=== PATIENT | male | born 1935 | race Caucasian/White ===

== ENCOUNTER → 2016-12-22 | Outpatient (CLI) | payer MEDICARE, BC, OTHER ==
[~2016-12-22] MED LIST: ACET500C PO; ACTO150T PO; ADV250INH INH; ADVA115A INH; AMLO2.5T PO; AMLO5TAB2 PO; ASPI1TAB PO; ASPI81TA85 PO; ASTE0.15; BORIC ACID AU; CALC1TAB30 PO; CALTTAB10 PO; CARB1TAB6 PO; CARB25TA PO; CEPH500C PO; CETI10TA PO; COMBAER6 IN; COMBAER6 INH; COMBIN INH; FERR325T PO; FERR325T3 PO; FINA5TAB2 PO; FISH120012 PO; FLOM5CAP PO; FOLI1TAB2 PO; FOLI1TAB86 PO; FURO20TA2 PO; GLUC750T22 PO; GLUCTAB6 PO; KEPP500T6 PO; LEVA500T PO; LIPI20TA PO; LORA10TA2 PO; MAGN400C2 PO; MAGN400T2 PO; META48.54 PO; METAPKT PO; METO-207 PO; METO50TA2 PO; METO50TA4 PO; MOME50SP; NORT25CA2 PO; NYST50SS SS; OMEP20CA3 PO; OXYB10TA PO; PROC10TA PO; RANI150T PO; SINE25TA PO; SYSTSOL8 OU; TAMS0.4C2 PO; TYLE325T5 PO; VITA100037 PO; VITA100066 PO; VITMTA PO; [UNRECOGNIZED DRUG - CODE] AU; [UNRECOGNIZED DRUG - OTHER] PO; benifiber PO; metamucil PO
--- NOTE | 2016-12-22 09:27 | REP ---
Chest x-ray, PA and lateral, 12/22/2016: Comparison 11/03/2016, 10/11/2016, 10/05/2016. Clinical history: Status post left lower lobectomy for lung carcinoma. Volume loss in the left hemithorax again seen. There is some lateral pleural thickening. Retrocardiac left lower lung zone atelectasis or fibrosis. Fibrotic changes in the suprahilar left lung. Small nodule could easily be obscured in these areas. The right lung is better inflated. There is underlying fibrosis and COPD. Some lateral pleural thickening right base noted. No pneumothorax. Heart mildly enlarged. There is no pulmonary edema. Some emphysematous changes are seen in the mid and upper lung zones. The aorta is mildly tortuous. Airway intact. The bony thorax shows degenerative changes without acute compression deformity. Impression: 1. Status post left lobectomy with volume loss left hemithorax and basilar fibrotic or atelectatic changes in retrocardiac region and suprahilar atelectasis or fibrosis seen. Small nodules could not be excluded in these regions. 2. Underlying COPD and bullous emphysematous changes with heavier fibrosis in the right base. No right effusion. 3. Mild cardiomegaly but no pulmonary edema, aortic aneurysm or other acute finding. Signed by Sotero Mendes MD 12/22/2016 05:03 P
== END ==
LOC: M SMT 08:45
PROVIDERS: ATTEND Ophthalmology
DX: C34.32 Malignant neoplasm of lower lobe, left bronchus or lung (principal); J44.9 Chronic obstructive pulmonary disease, unspecified; J84.10 Pulmonary fibrosis, unspecified; I51.7 Cardiomegaly

== ENCOUNTER → 2016-12-29 | Outpatient (CLI) | payer MEDICARE, BC ==
--- NOTE | 2016-12-29 23:45 | ECWPNPC ---
PATIENT NAME: JOANN TALELY : 1935 GENDER: MALE VISIT DATE: 12/29/2016 DISCHARGE DATE: 12/29/16 1716 VISIT LOCKED DATE TIME: PHYSICIAN: VAUGHN GREEN RESOURCE: VAUGHN GREEN REASON FOR APPOINTMENT 1. CHRONIC PAIN, LOW BACK HISTORY OF PRESENT ILLNESS NEW PATIENT CONSULT: WHEN DID YOUR PAIN FIRST START? . BRIEFLY DESCRIBE HOW YOUR PAIN STARTED? . HOW DOES YOUR PAIN CHANGE WITH TIME? . DOES YOUR PAIN AWAKEN YOU FROM SLEEP? . HOW MANY HOURS OF SLEEP DO YOU NORMALLY GET? . ANY DIAGNOSTIC TESTING? . FACILITY WHERE TESTS WERE DONE? ____. PAIN TREATMENT TREATMENT YES CANCER HAVE YOU EVER HAD ANY TYPE OF CANCER?YES CANCER TREATMENT?SURGERY, CHEMOTHERAPY NO. PAIN SCREENING: PATIENT HAS A COMPLAINT OF ACUTE OR CHRONIC PAIN YES FALL RISK SCREENING: SCREENING :NO FALLS IN THE PAST YEAR FIELDS INVENTORY: QUESTIONNAIRE ASSESSEDTBD SCORE VALUE CALCULATED TBD TODAY'S VISIT: NOTES: 81 YEAR OLD PATIENT PREVIOUSLY SEEN AT CLINIC FOR LOW BACK AND LEG PAIN, WITH LAST VISIT01/12/15, AND LAST INJECTION WAS BILATERAL LUMBAR FACET BLOCK, THERAPEUTIC ON 12/08/14. BACK PAIN HAS BEEN UNDER VERY GOOD CONTROL UNTIL A RECENT HOSPITALIZATION ON 11/02- FOR POST CHEMOTHERAPY WEAKNESS, FEVER, LEUKOCYTOSIS AND THROMBOCYTOPENIA, FOLLOW WITH DR JAMES FOR ONCOLOGY. DURING HOSPITALIZATION FOR LOW WHITE CELLS AND PLATELETS BEGAN HAVING PAIN IN LOW LACK WITH NUMBNESS ALONG LEFT THIGH TO LEVEL OF THE KNEE. HAS DISCOMFORT IN LOW BACK RIGHT SIDE WHICH IS PRESENT WHEN STANDING OR LYING DOWN. NO RECENT FALLS. BOWELS HAVE BEEN INTERMITTANTLY CONSTIPATED. NO HEMATACHEZIA. HAS NOCTURIA AND URINARY FREQUENCY SECONDARY TO BPH. NO SIGIFICANT DIFFICULTY WITH SOB DESPITE LOBECTOMY. STATES HAS BEEN DISCHARGED BY DR ZUNIGA HE HAS DONE SO WELL.. INFREQUENT COUGH WITH NO PRODUCTION. IS TAKING NO PAIN MEDS.. . CURRENT MEDICATIONS TAKING NORTRIPTYLINE HCL 25 MG CAPSULE 1 CAPSULE ORALLY ONCE A DAY TAKING LASIX 20 MG TABLET 1 TABLET ORALLY ONCE A DAY TAKING CARBIDOPA-LEVODOPA 25-100 MG TABLET 1 TABLET ORALLY THREE TIMES A DAY TAKING OMEPRAZOLE 20 MG CAPSULE DELAYED RELEASE 1 CAPSULE ORALLY ONCE A DAY TAKING AMLODIPINE BESYLATE 10 MG TABLET 1 TABLET ORALLY ONCE A DAY TAKING ORJCIHEQDEA-IBHTRDXMB-FFPJT-MN 750-600 CAPSULE DIRECTED ORALLY TAKING ASPIR-81 81 MG TABLET DELAYED RELEASE 1 TABLET ORALLY ONCE A DAY TAKING TYLENOL 325 MG TABLET 1 TABLET NEEDED ORALLY EVERY 6 HRS TAKING MAGNESIUM 400 MG CAPSULE 1 CAPSULE WITH A MEAL ORALLY ONCE A DAY TAKING FERROUS SULFATE 325 (65 FE) MG TABLET 1 TABLET ORALLY ONCE A DAY TAKING METOPROLOL SUCCINATE ER 50 MG TABLET EXTENDED RELEASE 24 HOUR 1 TABLET ORALLY ONCE A DAY TAKING FOLIC ACID 1 MG TABLET 1 TABLET ORALLY ONCE A DAY TAKING COMBIVENT 18-103 MCG/ACT AEROSOL 2 PUFFS INHALATION FOUR TIMES A DAY TAKING CALTRATE 600+D 600-400 MG-UNIT TABLET CHEWABLE 1 TABLET WITH MEALS ORALLY TWICE A DAY TAKING KEPPRA 500 MG TABLET 1 TABLET ORALLY EVERY 12 HRS TAKING SYSTANE 0.4-0.3 % SOLUTION 1 DROP INTO AFFECTED EYE NEEDED OPHTHALMIC 24 TIME(S) A DAY TAKING FISH OIL 1200 MG CAPSULE 1 CAPSULE ORALLY ONCE A DAY TAKING VITAMIN D 1000 UNIT CAPSULE 1 CAPSULE ORALLY ONCE A DAY TAKING ACTONEL 150 MG TABLET 1 TABLET ORALLY TAKING BORIC ACID IN ISOPROPYL SOLUTION DIRECTED OTIC TAKING ZYRTEC ALLERGY 10 MG TABLET 1 TABLET NEEDED ORALLY ONCE A DAY TAKING ASTEPRO 0.15 DIRECTED TAKING NASONEX 50 MCG/ACT SUSPENSION 2 SPRAYS IN EACH NOSTRIL NASALLY TWICE A DAY TAKING CENTRUM .04 TABLET 2 TABLETS DIRECTED ORALLY 1 TAKING TAMSULOSIN HCL 0.4 MG CAPSULE 2 CAPSULE 30 MINUTES AFTER THE SAME MEAL EACH DAY ORALLY ONCE A DAY TAKING OXYBUTYNIN CHLORIDE ER 5 TABLET EXTENDED RELEASE 24 HOUR DIRECTED ORALLY ONCE A DAY TAKING OXYBUTYNIN CHLORIDE ER 5 MG TABLET EXTENDED RELEASE 24 HOUR TAKE ONE TABLET BY MOUTH EVERY DAY DIRECTED TAKING FINASTERIDE 5 MG TABLET TAKE ONE TABLET BY MOUTH EVERY DAY TAKING FINASTERIDE 5 MG TABLET 1 TABLET ORALLY ONCE A DAY MEDICATION LIST REVIEWED AND RECONCILED WITH THE PATIENT PAST MEDICAL HISTORY HTN COPD (DR. 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 PSYCHOLOGICAL HX TREATMENTNO PAIN CLINIC PFS, CLERGY, PUBLIC HEALTH REFERRALS CLERGY REFERRAL NEEDED?NO WAS THE PROVIDER NOTIFIED OF ANY PERTINENT INFO?NO PFS REFERRAL NEEDED?NO PUBLIC HEALTH REFERRAL NEEDED?NO PATIENT: ____. ADVANCED DIRECTIVES HEALTH CARE PROXY?NO POWER OF OR ASSISTANT?NO REVIEWED, UPDATED.[facility] 08/18/15. HOSPITALIZATION/MAJOR DIAGNOSTIC PROCEDURE LOBECTOMY 2016 REVIEW OF SYSTEMS CONSTITUTIONAL: ANY CHANGE IN YOUR MEDICAL CONDITION? NO . CHILLS NO . FEVER NO . INFECTION: DO YOU HAVE NEW INFECTIONS? NO - RECENT LEUKOPENIA SECONDARY TO CHEMO . DO YOU HAVE HISTORY OF MRSA? NO . MUSCULOSKELETAL: ANY NEW PATTERNS OF PAIN OR NUMBNESS? NO . SYTEMIC LUPUS YES . GASTROENTEROLOGY: ANY NEW CHANGE IN BOWEL CONTROL? NO . BARRETTS ESOPHAGUS NO . CIRRHOSIS NO . HEPATITIS NO . LIVER FAILURE NO . ACID REFLUX NO . UNEXPLAINED WEIGHT LOSS NO . GENITOURINARY: ANY NEW CHANGE IN BLADDER CONTROL? NO . IS THERE A CHANCE YOU COULD BE ? NO . HEMATOLOGY/LYMPH: DO YOU TAKE ANY BLOOD THINNERS? (FOR EXAMPLE- COUMADIN, PLAVIX, AGGRENOX, PLATEL, PRADAXA, OR XARELTO) NO . WHEN WAS YOUR LAST DOSE? DATE: TIME: . LOW PLATELET COUNT NO . SICKLE CELL DISEASE NO . VON WILLIEBRANDS NO . FACTOR V LEIDEN NO . THALLASEMIA NO . ANEMIA NO . EASY BRUISING NO . NEUROLOGY: HAVE YOU FALLEN IN THE PAST 6 MONTHS? NO . ANY NEW EXTREMITY NUMBNESS OR WEAKNESS? NO . HEAD INJURY NO . DEMENTIA NO . CEREBRAL PALSY NO . MULTIPLE SCLEROSIS NO . DIZZINESS NO . HEADACHE NO . STROKES NO . VERTIGO NO . CARDIOLOGY: DO YOU HAVE A PACEMAKER OR DEFIBRILLATOR? NO . ANGINA NO . HEART ATTACK NO . HEART SURGERY NO . CONGESTIVE HEART FAILURE/FLUID OVERLOAD NO . CHEST PAIN NO . HIGH BLOOD PRESSURE NO . IRREGULAR HEART BEAT NO . RESPIRATORY: HAVE YOU BEEN SICK IN THE PAST WEEK? NO . FEVER NO . FLU LIKE SYMPTOMS? NO . CPAP NO . BYPAP NO . ASTHMA NO . EMPHYSEMA NO . CHRONIC LUNG DISEASES NO . SHORTNESS OF BREATH ON EXERTION YES . DO YOU USE ANY TYPE OF TOBACCO (SMOKE, SMOKELESS, CHEW)? NO . GENERAL LEFT THORACOTOMY INCISION - NON PAINFUL . COUGH NO . SNORING NO . INTEGUMENTARY: DO YOU HAVE ANY RASHES OR OPEN SORES? NO . ALLERGIC/IMMUNO: ARE YOU ALLERGIC TO SHELLFISH OR IV DYE? NO . ANY NEW ALLERGIES? NO . PSYCHIATRIC: DO YOU HAVE THOUGHTS OF HURTING YOURSELF OR SOMEONE ELSE? NO . ARE YOU ABUSED, NEGLECTED, OR IN AN UNSAFE ENVIRONMENT? NO . ENDOCRINOLOGY: ARE YOU DIABETIC? NO . THYROID DISORDER NO . OTHER: DO YOU NEED ANY PRESCRIPTIONS? NO . IF YES, PLEASE LIST: ____ . ANY NEW PROBLEMS WITH YOUR MEDICATIONS? NO . WHEN DID YOU LAST EAT? ____ . WHEN DID YOU LAST DRINK? ____ . WHAT DID YOU LAST DRINK? ____ . NAME OF PERSON DRIVING YOU HOME? ____ . DO YOU HAVE ANY OTHER QUESTIONS OR CONCERNS NO . REVIEWED BY: PROVIDER: VAUGHN MUSE . VITAL SIGNS WT 192.0 LBS, HT 5'8", BMI 29.19 INDEX, BP 145/74 MM HG, HR 73 /MIN, RR 18 /MIN, TEMP 97.2 F, OXYGEN SAT % 92, NA INITIALS TL 1538. EXAMINATION GENERAL EXAMINATION: PSYCHALERT , ORIENTED X 3 , APPROPRIATE MOOD AND AFFECT , VERY ATTENTIVE, TALKATIVE AND KNOWLEDGABLE. HEENT:NORMOCEPHALIC, HEARING AIDES IN PLACE BILATERALLY, NO LYMPHADENOPATHY, NO THYROMEGLY. CHEST:WELL HEALED LEFT THORACOTOMY INCISON NOTED - NOT EDEMA NOTED OVER CHEST WALL, NO TENDERNESS NOTED ALONG INCISION. LUNGS:NO LUNG SOUNDS DAVID LEFT BASE, DECREASED IN REMAINING LOBES. NO WHEEZES, RALES OR RHONCHI. HEART:NORMAL S1S2, NO MURMURS, CLICK OR RUBS. NO CAROTID BRUITS. ABDOMEN:SOFT AND NOT TENDER, BOWEL SOUNDS ACTIVE IN ALL QUADRANTS. MUSCULOSKELETAL:MUSCLE STRENGTH TESTING 5/5 BILATERAL LOWER EXTREMITIES, APPROPRIATE FOR AGE. TENDER OVER LEFT > RIGHT LUMBARFACETS AND OVER LEFT SACRUM - MANY TRIGGER POINTS AND TIGHT FIBROUS BANDS IDENTIFIED INTHE LUMBAR AND SACRAL MUSCLES, WITH RESTRICTION OF MOVEMENT NOTED. SLOW TO RISE TO STANDING POSITION, POSTURE STOOPED. WALKER USED FOR BALANCE. . NEUROLOGIC EXAM:DTR'S 2+ BUE, 3+ BLE. AREAS OF DECREASED SENSATION NOTED OVER RIGHT LATERAL AND MEDIAL THIGH TO LEVEL OF KNEE.. 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 ASSESSMENTS MYALGIA - M79.1 (PRIMARY) LUMBAGO WITH SCIATICA, RIGHT SIDE - M54.41 OTHER CHRONIC PAIN - G89.29 DEGENERATIVE LUMBAR SPINAL STENOSIS - M48.06 TREATMENT MYALGIA TRIGGER POINT 3 + VAUGHN JACOB 12/29/2016 4:40:06 PM > RIGHT LOW BACK/SACRUM NOTES: WALK TOLERATED,TRIGGER POINT INJECTION MATERIAL WAS PRINTED,TRIGGER POINT INJECTION: YOUR EXPERIENCE MATERIAL WAS PRINTED, FALLS CARE PLAN: 1. RECOMMEND REMOVING ALL THROW RUGS. 2. RECOMMEND NIGHT LIGHTS 3. RECOMMEND WEARING RUBBER SOLED SHOES AND TO NOT GO BAREFOOT. 4.. ADVISED TO CHANGE POSITION SLOWLY FROM SUPINE TO STANDING TO AVOID DIZZINESS. 5. ADVISED TO USE ASSISTIVE DEVICE SUCH CANE OR WALKER 6. USE [employer] OR KEEP PORTABLE PHONE READILY AVAILABLE, #128 - SCREENING BMI AND F/U PLAN IN : BMI ABOVE NORMAL TODAY. DISCUSSED WITH PATIENT NUTRITIONAL FOOD CHOICES TO ASSIST WITH WEIGHT LOSS. RECCOMMENDED REDUCING SALT, SUGAR, SODA INTAKE. RECOMMEND INCREASE ACTIVITY TO INCLUDE WALKING ON A REGULAR BASIS. PROCEDURE CODES FA211 ESTABILISHED PATIENT [facility] FACILITY CHARGE G8783 BP SCR PRFRM RCMDD DEFIND SCR INTVL G8730 PAIN ASSESS POS TOOL F/U PLAN DOC 3016F PT SCRND UNHLTHY [place] USE 1123F ACP DISCUSS/DSCN MKR DOCD 1036F TOBACCO NON-USER 0518F FALL PLAN OF CARE DOCD G8427 DOC MEDS VERIFIED W/PT OR RE G8417 BMI >=30 CALCUATE W/FOLLOWUP 3288F FALL RISK ASSESSMENT DOCD FOLLOW UP AFTER INJECTION (REASON: CHECK AUTH FOR TPI) ELECTRONICALLY SIGNED BY WEN BASS ON 12/29/2016 AT 06:52 PM EST DISCLAIMER : THIS IS A VISIT SUMMARY EXTRACTED FROM THE [employer] CHART. IT IS NOT A COPY OF THE [employer] PROGRESS NOTE. MTDD
== END ==
LOC: M PAIN 15:20
PROVIDERS: ATTEND Nurse Practitioner Family
DX: G89.29 Other chronic pain (principal); M79.1 Myalgia; M54.41 Lumbago with sciatica, right side; M48.06 Spinal stenosis, lumbar region; I10 Essential (primary) hypertension; J44.9 Chronic obstructive pulmonary disease, unspecified; M19.90 Unspecified osteoarthritis, unspecified site; G25.81 Restless legs syndrome; G47.30 Sleep apnea, unspecified; E78.5 Hyperlipidemia, unspecified; M32.9 Systemic lupus erythematosus, unspecified; Z88.2 Allergy status to sulfonamides; Z91.018 Allergy to other foods; Z79.84 Long term (current) use of oral hypoglycemic drugs; Z79.82 Long term (current) use of aspirin; Z79.899 Other long term (current) drug therapy; Z87.820 Personal history of traumatic brain injury; Z85.118 Personal history of other malignant neoplasm of bronchus and lung; Z87.891 Personal history of nicotine dependence

== ENCOUNTER → 2016-12-30 | Outpatient (CLI) | payer MEDICARE, BC ==
[~2016-12-30] MED LIST changes: +BUPIVACAINE HCL 0.25% 10 ML VIAL As Ordered ONE; +BUPIVACAINE HCL 0.25% 30 ML VIAL As Ordered ONE; +TRIAMCINOLONE ACETONIDE SUSP 40 MG/ML VIAL (J3301) As Ordered ONE
--- NOTE | 2017-01-03 23:57 | ECWPNPC ---
PATIENT NAME: JOANN ATLLEY : 1935 GENDER: MALE VISIT DATE: 12/30/2016 DISCHARGE DATE: 12/30/16 1333 VISIT LOCKED DATE TIME: PHYSICIAN: PARIS CAMACHO RESOURCE: PARIS CAMACHO REASON FOR APPOINTMENT 1. TPI HISTORY OF PRESENT ILLNESS HISTORY OF PRESENT ILLNESS: PAIN THE PATIENT DESCRIBES THE PAIN... FALL RISK SCREENING: SCREENING :NO FALLS IN THE PAST YEAR CURRENT MEDICATIONS TAKING LASIX 20 MG TABLET 1 TABLET ORALLY ONCE A DAY, NOTES: 12/29/16@1300 TAKING CARBIDOPA-LEVODOPA 25-100 MG TABLET 1 TABLET ORALLY THREE TIMES A DAY, NOTES: 12/29/16 TAKING OMEPRAZOLE 20 MG CAPSULE DELAYED RELEASE 1 CAPSULE ORALLY ONCE A DAY, NOTES: 12/30/16 TAKING AMLODIPINE BESYLATE 10 MG TABLET 1 TABLET ORALLY ONCE A DAY, NOTES: 12/30/16 TAKING SVBCOYVLEAJ-INNFCKKRE-UGBKW-MN 750-600 CAPSULE DIRECTED ORALLY , NOTES: 12/29/16 TAKING TYLENOL 325 MG TABLET 1 TABLET NEEDED ORALLY EVERY 6 HRS, NOTES: 1 WEEK AGO TAKING MAGNESIUM 400 MG CAPSULE 1 CAPSULE WITH A MEAL ORALLY ONCE A DAY, NOTES: 12/29/16 TAKING FERROUS SULFATE 325 (65 FE) MG TABLET 1 TABLET ORALLY ONCE A DAY, NOTES: 12/29/16 TAKING METOPROLOL SUCCINATE ER 50 MG TABLET EXTENDED RELEASE 24 HOUR 1 TABLET ORALLY ONCE A DAY, NOTES: 12/29/16@2229 TAKING FOLIC ACID 1 MG TABLET 1 TABLET ORALLY ONCE A DAY, NOTES: 12/30/16 TAKING COMBIVENT 18-103 MCG/ACT AEROSOL 2 PUFFS INHALATION FOUR TIMES A DAY, NOTES: 12/29/16@2199 TAKING CALTRATE 600+D 600-400 MG-UNIT TABLET CHEWABLE 1 TABLET WITH MEALS ORALLY TWICE A DAY, NOTES: 12/29/16 TAKING KEPPRA 500 MG TABLET 1 TABLET ORALLY EVERY 12 HRS, NOTES: 12/29/16 TAKING SYSTANE 0.4-0.3 % SOLUTION 1 DROP INTO AFFECTED EYE NEEDED OPHTHALMIC 24 TIME(S) A DAY, NOTES: 12/30/16@699 TAKING FISH OIL 1200 MG CAPSULE 1 CAPSULE ORALLY ONCE A DAY, NOTES: 12/29/16@1900 TAKING VITAMIN D 1000 UNIT CAPSULE 1 CAPSULE ORALLY ONCE A DAY, NOTES: 12/29/16@1900 TAKING BORIC ACID IN ISOPROPYL SOLUTION DIRECTED OTIC , NOTES: 1 WEEK AGO TAKING ZYRTEC ALLERGY 10 MG TABLET 1 TABLET NEEDED ORALLY ONCE A DAY, NOTES: 12/29/16@2200 TAKING NASONEX 50 MCG/ACT SUSPENSION 2 SPRAYS IN EACH NOSTRIL NASALLY TWICE A DAY, NOTES: 12/29/16 TAKING CENTRUM .04 TABLET 2 TABLETS DIRECTED ORALLY 1, NOTES: 12/29/16 TAKING TAMSULOSIN HCL 0.4 MG CAPSULE 2 CAPSULE 30 MINUTES AFTER THE SAME MEAL EACH DAY ORALLY ONCE A DAY, NOTES: 12/29/16@0900 TAKING OXYBUTYNIN CHLORIDE ER 5 TABLET EXTENDED RELEASE 24 HOUR DIRECTED ORALLY ONCE A DAY, NOTES: 12/30/1600 TAKING OXYBUTYNIN CHLORIDE ER 5 MG TABLET EXTENDED RELEASE 24 HOUR TAKE ONE TABLET BY MOUTH EVERY DAY DIRECTED , NOTES: 12/30/16 TAKING FINASTERIDE 5 MG TABLET TAKE ONE TABLET BY MOUTH EVERY DAY , NOTES: 01/08/17@00 TAKING LIPITOR 20 MG TABLET 1 TABLET ORALLY ONCE A DAY, NOTES: 12/29/16@1800 TAKING ADVAIR HFA 45-21 MCG/ACT AEROSOL 2 PUFFS INHALATION TWICE A DAY, NOTES: 12/29/16@1999 TAKING RANITIDINE HCL 150 MG CAPSULE 1 CAPSULE AT BEDTIME ORALLY ONCE A DAY, NOTES: 12/29/16@0 DISCONTINUED NORTRIPTYLINE HCL 25 MG CAPSULE 1 CAPSULE ORALLY ONCE A DAY DISCONTINUED ASPIR-81 81 MG TABLET DELAYED RELEASE 1 TABLET ORALLY ONCE A DAY DISCONTINUED ACTONEL 150 MG TABLET 1 TABLET ORALLY DISCONTINUED ASTEPRO 0.15 DIRECTED DISCONTINUED FINASTERIDE 5 MG TABLET 1 TABLET ORALLY ONCE A DAY MEDICATION LIST REVIEWED AND RECONCILED WITH THE PATIENT PAST MEDICAL HISTORY HTN COPD (DR. 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 NEW PATIENT PAIN DIARY TODAY'S VISITNOTES FROM 0-10, WHAT LEVEL IS YOUR PAIN TODAY?0 PAIN CLINIC PFS, CLERGY, PUBLIC HEALTH REFERRALS PFS REFERRAL NEEDED?NO CLERGY REFERRAL NEEDED?NO PUBLIC HEALTH REFERRAL NEEDED?NO WAS THE PROVIDER NOTIFIED OF ANY PERTINENT INFO?NO PFS REFERRAL NEEDED?NO CLERGY REFERRAL NEEDED?NO PUBLIC HEALTH REFERRAL NEEDED?NO WAS THE PROVIDER NOTIFIED OF ANY PERTINENT INFO?NO REVIEW OF SYSTEMS CONSTITUTIONAL: ANY CHANGE IN YOUR MEDICAL CONDITION? NO . CHILLS NO . FEVER NO . INFECTION: DO YOU HAVE NEW INFECTIONS? NO . DO YOU HAVE HISTORY OF MRSA? NO . MUSCULOSKELETAL: ANY NEW PATTERNS OF PAIN OR NUMBNESS? NO . GASTROENTEROLOGY: ANY NEW CHANGE IN BOWEL CONTROL? NO . GENITOURINARY: ANY NEW CHANGE IN BLADDER CONTROL? NO . IS THERE A CHANCE YOU COULD BE ? NO . HEMATOLOGY/LYMPH: DO YOU TAKE ANY BLOOD THINNERS? (FOR EXAMPLE- COUMADIN, PLAVIX, AGGRENOX, PLATEL, PRADAXA, OR XARELTO) NO . WHEN WAS YOUR LAST DOSE? DATE: TIME: . NEUROLOGY: HAVE YOU FALLEN IN THE PAST 6 MONTHS? NO . ANY NEW EXTREMITY NUMBNESS OR WEAKNESS? NO . CARDIOLOGY: DO YOU HAVE A PACEMAKER OR DEFIBRILLATOR? NO . RESPIRATORY: HAVE YOU BEEN SICK IN THE PAST WEEK? NO . FEVER NO . FLU LIKE SYMPTOMS? NO . COUGH NO . INTEGUMENTARY: DO YOU HAVE ANY RASHES OR OPEN SORES? NO . ALLERGIC/IMMUNO: ARE YOU ALLERGIC TO SHELLFISH OR IV DYE? NO . ANY NEW ALLERGIES? NO . PSYCHIATRIC: DO YOU HAVE THOUGHTS OF HURTING YOURSELF OR SOMEONE ELSE? NO . ARE YOU ABUSED, NEGLECTED, OR IN AN UNSAFE ENVIRONMENT? NO . ENDOCRINOLOGY: ARE YOU DIABETIC? NO . OTHER: DO YOU NEED ANY PRESCRIPTIONS? NO . IF YES, PLEASE LIST: ____ . ANY NEW PROBLEMS WITH YOUR MEDICATIONS? NO . WHEN DID YOU LAST EAT? ____12/29/16@1830 . WHEN DID YOU LAST DRINK? ____12/30/16@0800 . WHAT DID YOU LAST DRINK? ____GINGERALE . NAME OF PERSON DRIVING YOU HOME? ____RACHID TALLEY . DO YOU HAVE ANY OTHER QUESTIONS OR CONCERNS NO . REVIEWED BY: PROVIDER: . VITAL SIGNS WT 192.0 LBS, HT 5'8", BMI 29.19 INDEX, BP 147/70 MM HG, HR 66 /MIN, RR 18 /MIN, TEMP 95.0 F, OXYGEN SAT % 96%, NA INITIALS SC 11:19, REVIEWED BY: VD. ASSESSMENTS MYALGIA - M79.1 (PRIMARY) PROCEDURES PN TRIGGER POINT INJECTION WITH STEROIDS PRE PROCEDURE DIAGNOSIS 1. MYALGIA 2. PAIN AT RIGHT LOW BACK AREA POST PROCEDURE DIAGNOSIS 1. MYALGIA 2. PAIN AT RIGHT LOW BACK AREA PROCEDURE TRIGGER POINT INJECTION AT RIGHT LOW BACK AREA SURGEON DR. PARIS CAMACHO RANGE CONSERVATIONIST NONE ANESTHESIA LOCAL PRE PROCEDURE NOTE THE PATIENT HAS A HISTORY OF CHRONIC PAIN AT THE RIGHT LOW BACK AREA. I EVALUATE THE PATIENT AND REVIEWED THE CHART. THERE IS EVIDENCE OF BANDS OF TISSUE WITH RESTRICTION OF MOVEMENT AND PRESENCE OF TRIGGER POINT AT THE AFFECTED AREA. I WENT OVER THE RISKS, ALTERNATIVES, AND BENEFITS ASSOCIATED WITH THIS PROCEDURE. THE PATIENT WOULD LIKE TO PROCEED AND GIVE CONSENT TO PERFORMED THE PROCEDURE. THE PATIENT DENIES UNEXPLAINABLE WEIGHT LOSS, FEVER, CHILLS, OR NEW CHANGES IN URINARY OR BOWEL CONTROL DESCRIPTION OF PROCEDURE THE PATIENT WAS BROUGHT TO THE PROCEDURE ROOM AND PLACED IN THE SITTING POSITION. THE AREA WAS CLEANED WITH ALCOHOL. THE PROCEDURE WAS DONE USING ASEPTIC STERILE TECHNIQUE. I CHECKED LATERALITY AND THE LEVEL WHERE THE PROCEDURE WAS GOING TO BE PERFORMED WITH THE PATIENT AND THE SUPPORTING STAFF AT THE MOMENT OF THE TIME OUT IN THE PROCEDURE ROOM. USING A 25-GAUGE NEEDLE, TRIGGER POINTS WERE INJECTED AT THE RIGHT LOW BACK AREA WITH A TOTAL OF 40 ML OF BUPIVACAINE 0.25% AND KENALOG 40 MG. THERE WAS NO EVIDENCE OF BLOOD, PARESTHESIA OR CEREBROSPINAL FLUID DURING THE PROCEDURE. THE PATIENT WAS SENT TO THE RECOVERY ROOM. THE PATIENT WAS MOVING THE EXTREMITIES AND DOING WELL. THERE WAS NO COMPLICATION DURING THE PROCEDURE POST PROCEDURE NOTE THE PATIENT WILL BE SEEN IN A FOLLOW UP IN THE NEXT FEW WEEKS. INSTRUCTIONS WERE GIVEN, QUESTIONS WERE ANSWERED, AND THE PATIENT EXPRESSED UNDERSTANDING AND AGREES WITH THE PLAN. INSTRUCTIONS WERE GIVEN, QUESTIONS WERE ANSWERED, PATIENT REPORTS UNDERSTANDING AND AGREES WITH THE PLAN. I, FELIBERTO TIRADO, DOCUMENTED THE ABOVE INFORMATION ACTING A SCRIBE FOR DR. CAMACHO. I HAVE REVIEWED THE ABOVE DOCUMENT, WRITTEN BY FELIBERTO TIRADO SCRIBKi AND I VERIFY THAT IT IS ACCURATE. PROCEDURE CODES 63087 INJ TRIGGER POINT 11/21 MUSCL FOLLOW UP 3 WEEKS ELECTRONICALLY SIGNED BY PARIS CAMACHO MD ON 01/03/2017 AT 01:45 PM EST DISCLAIMER : THIS IS A VISIT SUMMARY EXTRACTED FROM THE [employer] CHART. IT IS NOT A COPY OF THE [employer] PROGRESS NOTE. [place]
== END ==
LOC: M PAIN 11:20
PROVIDERS: ATTEND Anesthesiology
DX: G89.29 Other chronic pain (principal); M79.1 Myalgia; M54.5 Low back pain; I10 Essential (primary) hypertension; J44.9 Chronic obstructive pulmonary disease, unspecified; M19.90 Unspecified osteoarthritis, unspecified site; G25.81 Restless legs syndrome; G47.30 Sleep apnea, unspecified; E78.5 Hyperlipidemia, unspecified; Z87.820 Personal history of traumatic brain injury; Z85.118 Personal history of other malignant neoplasm of bronchus and lung; M32.9 Systemic lupus erythematosus, unspecified; Z88.2 Allergy status to sulfonamides; Z91.018 Allergy to other foods; Z88.8 Allergy status to other drugs, medicaments and biological substances; Z79.899 Other long term (current) drug therapy
CPT/HCPCS: 20552; J3301

== ENCOUNTER → 2017-01-27 | Outpatient (CLI) | payer MEDICARE, BC ==
[~2017-01-27] MED LIST changes: -BUPIVACAINE HCL 0.25% 10 ML VIAL As Ordered ONE; -BUPIVACAINE HCL 0.25% 30 ML VIAL As Ordered ONE; -TRIAMCINOLONE ACETONIDE SUSP 40 MG/ML VIAL (J3301) As Ordered ONE
--- NOTE | 2017-02-03 00:18 | ECWPNPC ---
PATIENT NAME: JOANN TALLEY : 1935 GENDER: MALE VISIT DATE: 01/27/2017 DISCHARGE DATE: 01/27/17 1219 VISIT LOCKED DATE TIME: PHYSICIAN: VAUGHN GREEN RESOURCE: VAUGHN GREEN REASON FOR APPOINTMENT 1. BACK HISTORY OF PRESENT ILLNESS HISTORY OF PRESENT ILLNESS: PAIN THE PATIENT DESCRIBES THE PAIN... FALL RISK SCREENING: SCREENING :NO FALLS IN THE PAST YEAR TODAY'S VISIT: NOTES: RATES PAIN LEVEL TODAY 5/10. DESCRIBES PAIN INTERMITTANT, SHARP AND TENDER. NOTES TPI DNE 12/30/16 WAS VERY EFFECTIVE ALONG SPINE BUT STILL HAS AREA RIGHT FLANK WITH TIGHT SHARP BANDS. WENT TO ER FOR ARM PAIN WHICH WAS FELT TO BE COMING FROM THE NECK REGION.. CURRENT MEDICATIONS TAKING LASIX 20 MG TABLET 1 TABLET ORALLY ONCE A DAY TAKING CARBIDOPA-LEVODOPA 25-100 MG TABLET 1 TABLET ORALLY THREE TIMES A DAY TAKING OMEPRAZOLE 20 MG CAPSULE DELAYED RELEASE 1 CAPSULE ORALLY ONCE A DAY TAKING AMLODIPINE BESYLATE 10 MG TABLET 1 TABLET ORALLY ONCE A DAY TAKING [id number] 750-600 CAPSULE DIRECTED ORALLY TAKING TYLENOL 325 MG TABLET 1 TABLET NEEDED ORALLY EVERY 6 HRS TAKING MAGNESIUM 400 MG CAPSULE 1 CAPSULE WITH A MEAL ORALLY ONCE A DAY TAKING FERROUS SULFATE 325 (65 FE) MG TABLET 1 TABLET ORALLY ONCE A DAY TAKING METOPROLOL SUCCINATE ER 50 MG TABLET EXTENDED RELEASE 24 HOUR 1 TABLET ORALLY ONCE A DAY TAKING FOLIC ACID 1 MG TABLET 1 TABLET ORALLY ONCE A DAY TAKING COMBIVENT 18-103 MCG/ACT AEROSOL 2 PUFFS INHALATION FOUR TIMES A DAY TAKING CALTRATE 600+D 600-400 MG-UNIT TABLET CHEWABLE 1 TABLET WITH MEALS ORALLY TWICE A DAY TAKING KEPPRA 500 MG TABLET 1 TABLET ORALLY EVERY 12 HRS TAKING SYSTANE 0.4-0.3 % SOLUTION 1 DROP INTO AFFECTED EYE NEEDED OPHTHALMIC 24 TIME(S) A DAY TAKING FISH OIL 1200 MG CAPSULE 1 CAPSULE ORALLY ONCE A DAY TAKING VITAMIN D 1000 UNIT CAPSULE 1 CAPSULE ORALLY ONCE A DAY TAKING BORIC ACID IN ISOPROPYL SOLUTION DIRECTED OTIC TAKING ZYRTEC ALLERGY 10 MG TABLET 1 TABLET NEEDED ORALLY ONCE A DAY TAKING NASONEX 50 MCG/ACT SUSPENSION 2 SPRAYS IN EACH NOSTRIL NASALLY TWICE A DAY TAKING CENTRUM .04 TABLET 2 TABLETS DIRECTED ORALLY 1 TAKING TAMSULOSIN HCL 0.4 MG CAPSULE 2 CAPSULE 30 MINUTES AFTER THE SAME MEAL EACH DAY ORALLY ONCE A DAY TAKING OXYBUTYNIN CHLORIDE ER 5 TABLET EXTENDED RELEASE 24 HOUR DIRECTED ORALLY ONCE A DAY TAKING FINASTERIDE 5 MG TABLET TAKE ONE TABLET BY MOUTH EVERY DAY TAKING LIPITOR 20 MG TABLET 1 TABLET ORALLY ONCE A DAY TAKING ADVAIR HFA 45-21 MCG/ACT AEROSOL 2 PUFFS INHALATION TWICE A DAY TAKING RANITIDINE HCL 150 MG CAPSULE 1 CAPSULE AT BEDTIME ORALLY ONCE A DAY NOT-TAKING OXYBUTYNIN CHLORIDE ER 5 MG TABLET EXTENDED RELEASE 24 HOUR TAKE ONE TABLET BY MOUTH EVERY DAY DIRECTED MEDICATION LIST REVIEWED AND RECONCILED WITH THE PATIENT PAST MEDICAL HISTORY HTN COPD (DR. 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 NEW PATIENT PAIN DIARY TODAY'S VISITNOTES FROM 0-10, WHAT LEVEL IS YOUR PAIN TODAY?0 PAIN CLINIC PFS, CLERGY, PUBLIC HEALTH REFERRALS PFS REFERRAL NEEDED?NO CLERGY REFERRAL NEEDED?NO PUBLIC HEALTH REFERRAL NEEDED?NO WAS THE PROVIDER NOTIFIED OF ANY PERTINENT INFO?NO PFS REFERRAL NEEDED?NO CLERGY REFERRAL NEEDED?NO PUBLIC HEALTH REFERRAL NEEDED?NO WAS THE PROVIDER NOTIFIED OF ANY PERTINENT INFO?NO REVIEW OF SYSTEMS CONSTITUTIONAL: ANY CHANGE IN YOUR MEDICAL CONDITION? NO . CHILLS NO . FEVER NO . INFECTION: DO YOU HAVE NEW INFECTIONS? NO . DO YOU HAVE HISTORY OF MRSA? NO . MUSCULOSKELETAL: ANY NEW PATTERNS OF PAIN OR NUMBNESS? YES, PAIN IS RADIATING AROUND TO THE FRONT FROM RIGHT LOW BACK . GASTROENTEROLOGY: ANY NEW CHANGE IN BOWEL CONTROL? NO . GENITOURINARY: ANY NEW CHANGE IN BLADDER CONTROL? NO . IS THERE A CHANCE YOU COULD BE ? NO . HEMATOLOGY/LYMPH: DO YOU TAKE ANY BLOOD THINNERS? (FOR EXAMPLE- COUMADIN, PLAVIX, AGGRENOX, PLATEL, PRADAXA, OR XARELTO) NO . WHEN WAS YOUR LAST DOSE? DATE: TIME: . NEUROLOGY: HAVE YOU FALLEN IN THE PAST 6 MONTHS? NO . ANY NEW EXTREMITY NUMBNESS OR WEAKNESS? NO . CARDIOLOGY: DO YOU HAVE A PACEMAKER OR DEFIBRILLATOR? NO . RESPIRATORY: HAVE YOU BEEN SICK IN THE PAST WEEK? NO . FEVER NO . FLU LIKE SYMPTOMS? NO . SHORTNESS OF BREATH ON EXERTION MILD . COUGH NO . INTEGUMENTARY: DO YOU HAVE ANY RASHES OR OPEN SORES? NO . ALLERGIC/IMMUNO: ARE YOU ALLERGIC TO SHELLFISH OR IV DYE? NO . ANY NEW ALLERGIES? NO . PSYCHIATRIC: DO YOU HAVE THOUGHTS OF HURTING YOURSELF OR SOMEONE ELSE? NO . ARE YOU ABUSED, NEGLECTED, OR IN AN UNSAFE ENVIRONMENT? NO . ENDOCRINOLOGY: ARE YOU DIABETIC? NO . OTHER: DO YOU NEED ANY PRESCRIPTIONS? NO . IF YES, PLEASE LIST: ____ . ANY NEW PROBLEMS WITH YOUR MEDICATIONS? NO . WHEN DID YOU LAST EAT? ____ . WHEN DID YOU LAST DRINK? ____ . WHAT DID YOU LAST DRINK? ____ . NAME OF PERSON DRIVING YOU HOME? ____ . DO YOU HAVE ANY OTHER QUESTIONS OR CONCERNS NO . REVIEWED BY: PROVIDER: VAUGHN GREEN SYSTEM ADMINISTRATOR . VITAL SIGNS WT 192.4 LBS, HT 5'8", BMI 29.25 INDEX, BP 157/77 MM HG, HR 64 /MIN, RR 18 /MIN, TEMP 97.3 F, OXYGEN SAT % 92%, NA INITIALS SC 11:23, REVIEWED BY: CS. EXAMINATION GENERAL EXAMINATION: PSYCHALERT , ORIENTED X 3 , APPROPRIATE MOOD AND AFFECT , ATTENTIVE. LUNGS:CLEAR TO AUSCULTATION BILATERALLY. HEART:HEART RATE REGULAR. MUSCULOSKELETAL:POINT TENDERNESS OVER RIGHT FLANK AND RIGHT LUMBAR PARAVERTEBRAL MUSCLES. MIN TENDERNESS OVER LUMBAR SPINOUS PROCESSES. , TRIGGER POINTS AND TIGHT FIBROUS BANDS IDENTIFIED OVER CERVICL PARASPINOUS MUSCLES AND ACROSS THE TRAPEZIUS MUSCLES LEFT GREATER THAN RIGHT. , MUSCLE STRENGTH TESTING 5/5 BILATERAL UPPER EXTREMITIES. INCREASED MUSCLE TOME NOTED. GAIT STIFF. WALKER USED FOR BALANCE. NEUROLOGIC EXAM:EXPRESSIVE APHASIA NOTED. MASKLIKE FACE. 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 PROCEDURE CODES FA211 ESTABILISHED PATIENT [facility] FACILITY CHARGE G8730 PAIN ASSESS POS TOOL F/U PLAN DOC G8427 DOC MEDS VERIFIED W/PT OR RE DISPOSITION & COMMUNICATION FOLLOW UP AFTER INJECTION (REASON: CHECK AUTH FOR RIGHT LUMBAR FACET BLOCK THERAPEUTIC L2-3, L3-4, L4-5) ELECTRONICALLY SIGNED BY WEN BASS ON 02/02/2017 AT 08:54 AM EDT DISCLAIMER : THIS IS A VISIT SUMMARY EXTRACTED FROM THE [employer] CHART. IT IS NOT A COPY OF THE [employer] PROGRESS NOTE. [place]
== END ==
LOC: M PAIN 11:00
PROVIDERS: ATTEND Nurse Practitioner Family
DX: Z09 Encounter for follow-up examination after completed treatment for conditions other than malignant neoplasm (principal); G89.29 Other chronic pain; M79.1 Myalgia; M54.41 Lumbago with sciatica, right side; M48.06 Spinal stenosis, lumbar region; I10 Essential (primary) hypertension; J44.9 Chronic obstructive pulmonary disease, unspecified; M19.90 Unspecified osteoarthritis, unspecified site; G25.81 Restless legs syndrome; G47.30 Sleep apnea, unspecified; E78.5 Hyperlipidemia, unspecified; M32.9 Systemic lupus erythematosus, unspecified; Z88.2 Allergy status to sulfonamides; Z91.018 Allergy to other foods; Z88.1 Allergy status to other antibiotic agents; Z79.891 Long term (current) use of opiate analgesic; Z79.899 Other long term (current) drug therapy; Z87.820 Personal history of traumatic brain injury; Z85.118 Personal history of other malignant neoplasm of bronchus and lung

== ENCOUNTER → 2017-02-17 | Outpatient (CLI) | payer MEDICARE, BC ==
[~2017-02-17] MED LIST changes: +BUPIVACAINE HCL 0.25% 30 ML VIAL As Ordered ONE; +ISOVUE-M 300 61% 15ML VIAL (Q9967) As Ordered ONE; +LIDOCAINE 1% SDV INJ 30 ML VIAL As Ordered ONE; +TRIAMCINOLONE ACETONIDE SUSP 40 MG/ML VIAL (J3301) As Ordered ONE
--- NOTE | 2017-02-17 14:11 | REP ---
FLUOROSCOPIC GUIDANCE FOR LUMBAR FACET INJECTION: 02/17/2017 CLINICAL HISTORY: Right-sided low back pain. FINDINGS: Three images from the C-arm fluoroscopy provided to Dr. Hager of the pain clinic for right lumbar facet block. The three images show needles at the L4-5 and L3-4 levels on the right at the facets with contrast adjacent to the needle tips on the second image. Fluoroscopy time: 11 seconds. Signed by Sotero Mendes MD 02/17/2017 08:12 P
--- NOTE | 2017-02-26 23:46 | ECWPNPC ---
PATIENT NAME: JOANN TALLEY : 1935 GENDER: MALE VISIT DATE: 02/17/2017 DISCHARGE DATE: 02/17/17 1313 VISIT LOCKED DATE TIME: PHYSICIAN: PARIS CAMACHO RESOURCE: PARSI CAMACHO REASON FOR APPOINTMENT 1. LUMBAR FACET, THERE HISTORY OF PRESENT ILLNESS HISTORY OF PRESENT ILLNESS: PAIN THE PATIENT DESCRIBES THE PAIN... FALL RISK SCREENING: SCREENING :NO FALLS IN THE PAST YEAR CURRENT MEDICATIONS TAKING LASIX 20 MG TABLET 1 TABLET ORALLY ONCE A DAY TAKING CARBIDOPA-LEVODOPA 25-100 MG TABLET 1 TABLET ORALLY THREE TIMES A DAY TAKING OMEPRAZOLE 20 MG CAPSULE DELAYED RELEASE 1 CAPSULE ORALLY ONCE A DAY TAKING AMLODIPINE BESYLATE 10 MG TABLET 1 TABLET ORALLY ONCE A DAY TAKING [id number] 750-600 CAPSULE DIRECTED ORALLY , NOTES: 02/16/17@1800 TAKING TYLENOL 325 MG TABLET 1 TABLET NEEDED ORALLY EVERY 6 HRS, NOTES: 02/16/171800 TAKING MAGNESIUM 400 MG CAPSULE 1 CAPSULE WITH A MEAL ORALLY ONCE A DAY, NOTES: 02/16/171800 TAKING FERROUS SULFATE 325 (65 FE) MG TABLET 1 TABLET ORALLY ONCE A DAY, NOTES: 01/27/17@1800 TAKING METOPROLOL SUCCINATE ER 50 MG TABLET EXTENDED RELEASE 24 HOUR 1 TABLET ORALLY ONCE A DAY, NOTES: 02/17/17@0800 TAKING FOLIC ACID 1 MG TABLET 1 TABLET ORALLY ONCE A DAY, NOTES: 02/16/17@0800 TAKING COMBIVENT 18-103 MCG/ACT AEROSOL 2 PUFFS INHALATION FOUR TIMES A DAY, NOTES: 02/16/17@2100 TAKING CALTRATE 600+D 600-400 MG-UNIT TABLET CHEWABLE 1 TABLET WITH MEALS ORALLY TWICE A DAY, NOTES: 02/16/17@1800 TAKING KEPPRA 500 MG TABLET 1 TABLET ORALLY EVERY 12 HRS, NOTES: 02/16/17@2130 TAKING SYSTANE 0.4-0.3 % SOLUTION 1 DROP INTO AFFECTED EYE NEEDED OPHTHALMIC 24 TIME(S) A DAY, NOTES: 02/16/17@0900 TAKING FISH OIL 1200 MG CAPSULE 1 CAPSULE ORALLY ONCE A DAY, NOTES: 02/16/17@1800 TAKING VITAMIN D 1000 UNIT CAPSULE 1 CAPSULE ORALLY ONCE A DAY, NOTES: 02/16/17@1800 TAKING BORIC ACID IN ISOPROPYL SOLUTION DIRECTED OTIC , NOTES: HASN'T USED LATELY TAKING ZYRTEC ALLERGY 10 MG TABLET 1 TABLET NEEDED ORALLY ONCE A DAY, NOTES: 02/16/17@2100 TAKING NASONEX 50 MCG/ACT SUSPENSION 2 SPRAYS IN EACH NOSTRIL NASALLY TWICE A DAY, NOTES: 02/17/17 @2000 TAKING CENTRUM .04 TABLET 2 TABLETS DIRECTED ORALLY 1, NOTES: 02/16/17@1200 TAKING TAMSULOSIN HCL 0.4 MG CAPSULE 2 CAPSULE 30 MINUTES AFTER THE SAME MEAL EACH DAY ORALLY ONCE A DAY, NOTES: 02/16/17@0900 TAKING OXYBUTYNIN CHLORIDE ER 5 TABLET EXTENDED RELEASE 24 HOUR DIRECTED ORALLY ONCE A DAY, NOTES: 02/17/17@0800 TAKING FINASTERIDE 5 MG TABLET TAKE ONE TABLET BY MOUTH EVERY DAY , NOTES: 02/17/17@0800 TAKING LIPITOR 20 MG TABLET 1 TABLET ORALLY ONCE A DAY, NOTES: 02/16/17@1800 TAKING ADVAIR HFA 45-21 MCG/ACT AEROSOL 2 PUFFS INHALATION TWICE A DAY, NOTES: 02/16/17@1800 TAKING RANITIDINE HCL 150 MG CAPSULE 1 CAPSULE AT BEDTIME ORALLY ONCE A DAY, NOTES: 02/17/17@0800 TAKING AMLODIPINE BESYLATE NOT-TAKING OXYBUTYNIN CHLORIDE ER 5 MG TABLET EXTENDED RELEASE 24 HOUR TAKE ONE TABLET BY MOUTH EVERY DAY DIRECTED MEDICATION LIST REVIEWED AND RECONCILED WITH THE PATIENT PAST MEDICAL HISTORY HTN COPD (DR. 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 REVIEW OF SYSTEMS CONSTITUTIONAL: ANY CHANGE IN YOUR MEDICAL CONDITION? NO . CHILLS NO . FEVER NO . INFECTION: DO YOU HAVE NEW INFECTIONS? NO . DO YOU HAVE HISTORY OF MRSA? NO . MUSCULOSKELETAL: ANY NEW PATTERNS OF PAIN OR NUMBNESS? NO . GASTROENTEROLOGY: ANY NEW CHANGE IN BOWEL CONTROL? NO . GENITOURINARY: ANY NEW CHANGE IN BLADDER CONTROL? NO . IS THERE A CHANCE YOU COULD BE ? NO . HEMATOLOGY/LYMPH: DO YOU TAKE ANY BLOOD THINNERS? (FOR EXAMPLE- COUMADIN, PLAVIX, AGGRENOX, PLATEL, PRADAXA, OR XARELTO) NO . WHEN WAS YOUR LAST DOSE? DATE: TIME: . NEUROLOGY: HAVE YOU FALLEN IN THE PAST 6 MONTHS? NO . ANY NEW EXTREMITY NUMBNESS OR WEAKNESS? NO . CARDIOLOGY: DO YOU HAVE A PACEMAKER OR DEFIBRILLATOR? NO . RESPIRATORY: HAVE YOU BEEN SICK IN THE PAST WEEK? NO . FEVER NO . FLU LIKE SYMPTOMS? NO . COUGH NO . INTEGUMENTARY: DO YOU HAVE ANY RASHES OR OPEN SORES? NO . ALLERGIC/IMMUNO: ARE YOU ALLERGIC TO SHELLFISH OR IV DYE? NO . ANY NEW ALLERGIES? NO . PSYCHIATRIC: DO YOU HAVE THOUGHTS OF HURTING YOURSELF OR SOMEONE ELSE? NO . ARE YOU ABUSED, NEGLECTED, OR IN AN UNSAFE ENVIRONMENT? NO . ENDOCRINOLOGY: ARE YOU DIABETIC? NO . OTHER: DO YOU NEED ANY PRESCRIPTIONS? NO . IF YES, PLEASE LIST: ____ . ANY NEW PROBLEMS WITH YOUR MEDICATIONS? NO . WHEN DID YOU LAST EAT? ____02/16/17 . WHEN DID YOU LAST DRINK? ____02/17/17@0800 . WHAT DID YOU LAST DRINK? ____GINGERALE . NAME OF PERSON DRIVING YOU HOME? RACHID CLAYTONRAJ . DO YOU HAVE ANY OTHER QUESTIONS OR CONCERNS NO . REVIEWED BY: PROVIDER: . VITAL SIGNS WT 185.0 LBS, HT 5'8", BMI 28.13 INDEX, BP 176/72 MM HG, HR 73 /MIN, RR 18 /MIN, TEMP 97.7 F, OXYGEN SAT % 93%, NA INITIALS AW 11:03, REVIEWED BY: VD. ASSESSMENTS SPONDYLOSIS WITHOUT MYELOPATHY OR RADICULOPATHY, LUMBAR REGION - M47.816 (PRIMARY) PROCEDURES PN LUMBAR FACET BLOCK THERAPEUTIC PRE PROCEDURE DIAGNOSIS LUMBAR SPONDYLOSIS POST PROCEDURE DIAGNOSIS LUMBAR SPONDYLOSIS PROCEDURE RIGHT L2-L3 AND RIGHT L3-L4 LUMBAR FACET THERAPEUTIC BLOCK SURGEON DR. [facility] PERSONNEL DIRECTOR NONE ANESTHESIA LOCAL PRE PROCEDURE NOTE THE PATIENT HAS A HISTORY OF CHRONIC LOW BACK PAIN. I EVALUATE THE PATIENT AND REVIEWED THE CHART. I WENT OVER THE RISKS, ALTERNATIVES, AND BENEFITS ASSOCIATED WITH THIS PROCEDURE. THE PATIENT WOULD LIKE TO PROCEED AND GIVE CONSENT TO PERFORMED THE PROCEDURE. THE PATIENT DENIES UNEXPLAINABLE WEIGHT LOSS, FEVER, CHILLS, OR NEW CHANGES IN URINARY OR BOWEL CONTROL DESCRIPTION OF PROCEDURE THE PATIENT WAS BROUGHT TO THE PROCEDURE ROOM AND PLACED IN THE PRONE POSITION. THE LUMBOSACRAL AREA WAS CLEANED WITH CHLORAPREP SOLUTION AND DRAPED ASEPTICALLY. THE PROCEDURE WAS DONE UNDER STERILE CONDITIONS. I CHECKED LATERALITY AND THE LEVEL WHERE THE PROCEDURE WAS GOING TO BE PERFORMED WITH THE PATIENT AND THE SUPPORTING STAFF AT THE MOMENT OF THE TIME OUT IN THE PROCEDURE ROOM. UNDER FLUOROSCOPIC GUIDANCE, THE TARGET POINT WAS SELECTED AT THE RIGHT C2-C3 AND RIGHT C3-C4 FACET JOINT. TARGET POINT WAS SELECTED AFTER LATERAL ROTATION AND TILT OF THE MAGNIFIER OF THE C-ARM. LIDOCAINE 0.5% WAS USED TO NUMB THE SKIN AND THE SUBCUTANEOUS TISSUE BELOW IT. SPINAL NEEDLES, 22-GAUGE, WERE ADVANCED UNDER FLUOROSCOPIC GUIDANCE AND FOLLOWING PATIENT FEEDBACK UNTIL THE TARGETS WERE TOUCHED. THE POSITION OF THE NEEDLES WAS VERIFIED WITH AP AND LATERAL VIEWS. AFTER PROPER POSITION OF THE NEEDLES WAS ACHIEVED, ISOVUE-M DYE 30% 0.1 ML WAS INJECTED SHOWING ADEQUATE SPREAD OF THE DYE. THEN A SOLUTION OF 1.9 ML OF BUPIVACAINE 0.125% OF KENALOG 10 MG WAS INJECTED AT EACH SITE. THERE WAS NO EVIDENCE OF BLOOD, PARESTHESIA OR CEREBROSPINAL FLUID DURING THE PROCEDURE. THE PATIENT WAS SENT TO THE RECOVERY ROOM. THE PATIENT WAS MOVING THE EXTREMITIES AND DOING WELL. THERE WAS NO COMPLICATION DURING THE PROCEDURE. FLUOROSCOPY TIME WAS 11 SECONDS POST PROCEDURE NOTE THE PATIENT WILL BE SEEN IN A FOLLOW UP IN THE NEXT FEW WEEKS. INSTRUCTIONS WERE GIVEN, QUESTIONS WERE ANSWERED, AND THE PATIENT EXPRESSED UNDERSTANDING AND AGREES WITH THE PLAN. I, GISSELLE VALVERDE, DOCUMENTED THE ABOVE INFORMATION ACTING A SCRIBE FOR DR. CAMACHO. I, DR. CAMACHO, HAVE REVIEWED THE ABOVE DOCUMENT, SCRIBED BY GISSELLE VALVERDE, AND I VERIFY THAT IT IS ACCURATE DIAGNOSTIC IMAGING [facility] FACET BLOCK (PAIN)[id number] PROCEDURE CODES 85395 INJ PARAVERT F JNT L/S 1 LEV 31935 INJ PARAVERT F JNT L/S 2 LEV 6045F RADXPS IN END [id number] PXD DISPOSITION & COMMUNICATION FOLLOW UP 3 WEEKS ELECTRONICALLY SIGNED BY PARIS CAMACHO MD ON 02/26/2017 AT 09:36 PM EDT DISCLAIMER : THIS IS A VISIT SUMMARY EXTRACTED FROM THE [employer] CHART. IT IS NOT A COPY OF THE [employer] PROGRESS NOTE. MTDD
== END ==
LOC: M PAIN 11:00
PROVIDERS: ATTEND Anesthesiology
DX: G89.29 Other chronic pain (principal); M47.816 Spondylosis without myelopathy or radiculopathy, lumbar region; I10 Essential (primary) hypertension; J44.9 Chronic obstructive pulmonary disease, unspecified; M19.90 Unspecified osteoarthritis, unspecified site; G25.81 Restless legs syndrome; G47.30 Sleep apnea, unspecified; E78.5 Hyperlipidemia, unspecified; M32.9 Systemic lupus erythematosus, unspecified; Z87.820 Personal history of traumatic brain injury; Z85.118 Personal history of other malignant neoplasm of bronchus and lung; Z88.2 Allergy status to sulfonamides; Z91.018 Allergy to other foods; Z88.1 Allergy status to other antibiotic agents; Z79.899 Other long term (current) drug therapy
CPT/HCPCS: 64493; 64494; J3301; Q9967

== ENCOUNTER → 2017-03-15 | Outpatient (CLI) | payer MEDICARE, BC ==
[~2017-03-15] MED LIST changes: -BUPIVACAINE HCL 0.25% 30 ML VIAL As Ordered ONE; -ISOVUE-M 300 61% 15ML VIAL (Q9967) As Ordered ONE; -LIDOCAINE 1% SDV INJ 30 ML VIAL As Ordered ONE; -TRIAMCINOLONE ACETONIDE SUSP 40 MG/ML VIAL (J3301) As Ordered ONE
--- NOTE | 2017-04-04 02:15 | ECWPNPC ---
PATIENT NAME: JOANN TALLEY : 1935 GENDER: MALE VISIT DATE: 03/15/2017 DISCHARGE DATE: 03/15/17 1203 VISIT LOCKED DATE TIME: PHYSICIAN: VAUGHN GREEN RESOURCE: VAUGHN GREEN REASON FOR APPOINTMENT 1. POST PROCEDURE HISTORY OF PRESENT ILLNESS HISTORY OF PRESENT ILLNESS: PAIN THE PATIENT DESCRIBES THE PAIN... FALL RISK SCREENING: SCREENING :NO FALLS IN THE PAST YEAR TODAY'S VISIT: NOTES: S/P RIGHT THERAPEUTIC LUMBAR FACET BLOCK COMPLETED ON 02/17/17 AT L2-3 AND L3-4. DECREASED PAIN IN AREA ADDRESSED ALMOST 100%. IS ABLE TO WALK FARHER AND STAND LONGER.BALANCE STILL AN ISSUE - USES CANE OR WALKER. IS PLEASED WITH HIS PROGRESS.. CURRENT MEDICATIONS TAKING LASIX 20 MG TABLET 1 TABLET ORALLY ONCE A DAY TAKING CARBIDOPA-LEVODOPA 25-100 MG TABLET 1 TABLET ORALLY THREE TIMES A DAY TAKING OMEPRAZOLE 20 MG CAPSULE DELAYED RELEASE 1 CAPSULE ORALLY ONCE A DAY TAKING AMLODIPINE BESYLATE 10 MG TABLET 1 TABLET ORALLY ONCE A DAY TAKING [id number] 750-600 CAPSULE DIRECTED ORALLY , NOTES: 02/16/17@1800 TAKING TYLENOL 325 MG TABLET 1 TABLET NEEDED ORALLY EVERY 6 HRS, NOTES: 02/16/17@1800 TAKING MAGNESIUM 400 MG CAPSULE 1 CAPSULE WITH A MEAL ORALLY ONCE A DAY, NOTES: 02/16/17@1800 TAKING FERROUS SULFATE 325 (65 FE) MG TABLET 1 TABLET ORALLY ONCE A DAY, NOTES: 01/27/17@1800 TAKING METOPROLOL SUCCINATE ER 50 MG TABLET EXTENDED RELEASE 24 HOUR 1 TABLET ORALLY ONCE A DAY, NOTES: 02/17/17@0800 TAKING FOLIC ACID 1 MG TABLET 1 TABLET ORALLY ONCE A DAY, NOTES: 02/16/17@0800 TAKING COMBIVENT 18-103 MCG/ACT AEROSOL 2 PUFFS INHALATION FOUR TIMES A DAY, NOTES: 02/16/17@2100 TAKING CALTRATE 600+D 600-400 MG-UNIT TABLET CHEWABLE 1 TABLET WITH MEALS ORALLY TWICE A DAY, NOTES: 02/16/17@1800 TAKING KEPPRA 500 MG TABLET 1 TABLET ORALLY EVERY 12 HRS, NOTES: 02/16/17@2130 TAKING SYSTANE 0.4-0.3 % SOLUTION 1 DROP INTO AFFECTED EYE NEEDED OPHTHALMIC 24 TIME(S) A DAY, NOTES: 02/16/17@0900 TAKING FISH OIL 1200 MG CAPSULE 1 CAPSULE ORALLY ONCE A DAY, NOTES: 02/16/17@1800 TAKING VITAMIN D 1000 UNIT CAPSULE 1 CAPSULE ORALLY ONCE A DAY, NOTES: 02/16/171800 TAKING BORIC ACID IN ISOPROPYL SOLUTION DIRECTED OTIC , NOTES: HASN'T USED LATELY TAKING ZYRTEC ALLERGY 10 MG TABLET 1 TABLET NEEDED ORALLY ONCE A DAY, NOTES: 02/16/17@2100 TAKING NASONEX 50 MCG/ACT SUSPENSION 2 SPRAYS IN EACH NOSTRIL NASALLY TWICE A DAY, NOTES: 02/17/17 @1999 TAKING CENTRUM .04 TABLET 2 TABLETS DIRECTED ORALLY 1, NOTES: 02/16/17@1199 TAKING TAMSULOSIN HCL 0.4 MG CAPSULE 2 CAPSULE 30 MINUTES AFTER THE SAME MEAL EACH DAY ORALLY ONCE A DAY, NOTES: 02/16/17@0900 TAKING OXYBUTYNIN CHLORIDE ER 5 TABLET EXTENDED RELEASE 24 HOUR DIRECTED ORALLY ONCE A DAY, NOTES: 02/17/17@0800 TAKING FINASTERIDE 5 MG TABLET TAKE ONE TABLET BY MOUTH EVERY DAY , NOTES: 02/17/17@799 TAKING LIPITOR 20 MG TABLET 1 TABLET ORALLY ONCE A DAY, NOTES: 02/16/17@1800 TAKING ADVAIR HFA 45-21 MCG/ACT AEROSOL 2 PUFFS INHALATION TWICE A DAY, NOTES: 02/16/17 TAKING RANITIDINE HCL 150 MG CAPSULE 1 CAPSULE AT BEDTIME ORALLY ONCE A DAY, NOTES: 02/17/17@0800 TAKING AMLODIPINE BESYLATE NOT-TAKING OXYBUTYNIN CHLORIDE ER 5 MG TABLET EXTENDED RELEASE 24 HOUR TAKE ONE TABLET BY MOUTH EVERY DAY DIRECTED MEDICATION LIST REVIEWED AND RECONCILED WITH THE PATIENT PAST MEDICAL HISTORY HTN COPD (DR. 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 REVIEW OF SYSTEMS CONSTITUTIONAL: ANY CHANGE IN YOUR MEDICAL CONDITION? NO . CHILLS NO . FEVER NO . INFECTION: DO YOU HAVE NEW INFECTIONS? NO . DO YOU HAVE HISTORY OF MRSA? NO . MUSCULOSKELETAL: ANY NEW PATTERNS OF PAIN OR NUMBNESS? YES, PAIN HAS MOVED BACK INTO MORE OF THE MIDDLE OF HIS BACK. THE INJECTION DID HELP THE AREA THEY DID. . GASTROENTEROLOGY: ANY NEW CHANGE IN BOWEL CONTROL? NO . GENITOURINARY: ANY NEW CHANGE IN BLADDER CONTROL? NO . IS THERE A CHANCE YOU COULD BE ? NO . HEMATOLOGY/LYMPH: DO YOU TAKE ANY BLOOD THINNERS? (FOR EXAMPLE- COUMADIN, PLAVIX, AGGRENOX, PLATEL, PRADAXA, OR XARELTO) NO . WHEN WAS YOUR LAST DOSE? DATE: TIME: . NEUROLOGY: HAVE YOU FALLEN IN THE PAST 6 MONTHS? NO . ANY NEW EXTREMITY NUMBNESS OR WEAKNESS? NO . CARDIOLOGY: DO YOU HAVE A PACEMAKER OR DEFIBRILLATOR? NO . RESPIRATORY: HAVE YOU BEEN SICK IN THE PAST WEEK? NO . FEVER NO . FLU LIKE SYMPTOMS? NO . COUGH NO . INTEGUMENTARY: DO YOU HAVE ANY RASHES OR OPEN SORES? NO . ALLERGIC/IMMUNO: ARE YOU ALLERGIC TO SHELLFISH OR IV DYE? NO . ANY NEW ALLERGIES? NO . PSYCHIATRIC: DO YOU HAVE THOUGHTS OF HURTING YOURSELF OR SOMEONE ELSE? NO . ARE YOU ABUSED, NEGLECTED, OR IN AN UNSAFE ENVIRONMENT? NO . ENDOCRINOLOGY: ARE YOU DIABETIC? NO . OTHER: DO YOU NEED ANY PRESCRIPTIONS? NO . IF YES, PLEASE LIST: ____ . ANY NEW PROBLEMS WITH YOUR MEDICATIONS? NO . WHEN DID YOU LAST EAT? ____ . WHEN DID YOU LAST DRINK? ____ . WHAT DID YOU LAST DRINK? ____ . NAME OF PERSON DRIVING YOU HOME? ____ . DO YOU HAVE ANY OTHER QUESTIONS OR CONCERNS NO . REVIEWED BY: PROVIDER: VAUGHN MUSE . VITAL SIGNS WT 185 LBS, HT 5'8", BMI 28.13 INDEX, BP 146/84 MM HG, HR 68 /MIN, RR 18 /MIN, TEMP 98.9 F, OXYGEN SAT % 96%, NA INITIALS CM 1130. EXAMINATION GENERAL EXAMINATION: PSYCHALERT , ORIENTED X 3 , APPROPRIATE MOOD AND AFFECT , ATTENTIVE. LUNGS:CLEAR TO AUSCULTATION BILATERALLY. HEART:HEART RATE REGULAR. MUSCULOSKELETAL:MINIMAL TENDERNESS WITH PALPATION OVER RIGHT FLANK AND RIGHT LUMBAR PARAVERTEBRAL MUSCLES. MIN TENDERNESS OVER LUMBAR SPINOUS PROCESSES. , HT. , MUSCLE STRENGTH TESTING 5/5 BILATERAL UPPER EXTREMITIES. INCREASED MUSCLE TONE NOTED. GAIT STIFF. WALKER USED FOR BALANCE. SOME DIFFICULTY NOTED RISING TO FULL STANDING POSITION BUT IS ABLE TO DO THIS INDEPENDANTLY.. NEUROLOGIC EXAM:EXPRESSIVE APHASIA NOTED. MASKLIKE FACE. ASSESSMENTS SPONDYLOSIS WITHOUT MYELOPATHY OR RADICULOPATHY, LUMBAR REGION - M47.816 (PRIMARY) MYALGIA - M79.1 (PRIMARY) LUMBAGO WITH SCIATICA, RIGHT SIDE - M54.41 OTHER CHRONIC PAIN - G89.29 DEGENERATIVE LUMBAR SPINAL STENOSIS - M48.06 TREATMENT SPONDYLOSIS WITHOUT MYELOPATHY OR RADICULOPATHY, LUMBAR REGION NOTES: WALK ABLE - USE CANE OR WALKER. CALL IF PAIN RETURNS. PROCEDURE CODES FA211 ESTABILISHED PATIENT [facility] FACILITY CHARGE [id number] PAIN ASSESS POS TOOL F/U PLAN DOC G8427 DOC MEDS VERIFIED W/PT OR RE DISPOSITION & COMMUNICATION FOLLOW UP MID TO LATE MAY ELECTRONICALLY SIGNED BY WEN BASS ON 04/03/2017 AT 01:49 PM EDT DISCLAIMER : THIS IS A VISIT SUMMARY EXTRACTED FROM THE [employer] CHART. IT IS NOT A COPY OF THE [employer] PROGRESS NOTE. [place]
== END ==
LOC: M PAIN 10:40
PROVIDERS: ATTEND Nurse Practitioner Family
DX: G89.29 Other chronic pain (principal); M47.816 Spondylosis without myelopathy or radiculopathy, lumbar region; M79.1 Myalgia; M54.41 Lumbago with sciatica, right side; M48.06 Spinal stenosis, lumbar region; I10 Essential (primary) hypertension; J44.9 Chronic obstructive pulmonary disease, unspecified; M19.90 Unspecified osteoarthritis, unspecified site; G25.81 Restless legs syndrome; E78.5 Hyperlipidemia, unspecified; M32.9 Systemic lupus erythematosus, unspecified; Z88.2 Allergy status to sulfonamides; Z91.018 Allergy to other foods; Z88.1 Allergy status to other antibiotic agents; Z79.899 Other long term (current) drug therapy

== ENCOUNTER → 2017-05-26 | Outpatient (CLI) | payer MEDICARE, BC, OTHER ==
[~2017-05-26] MED LIST changes: +FERR1TAB8 PO; -FERR325T PO; -FOLI1TAB2 PO; +FOLI1TAB4 PO; +ISOVUE-370 76% 100ML VIAL (Q9967) As Ordered ONE; +KEPP1TAB PO; -KEPP500T6 PO; +LEVA1TAB2 PO; -LEVA500T PO; -METO-207 PO; +METO1TAB7 PO; -METO50TA2 PO; +METO50TA7 PO
--- NOTE | 2017-05-26 13:07 | REP ---
Clinical: History of narrow endocrine tumor. Comparison: 07/18/2016. Technique: Axial contrast enhanced images from the thoracic inlet to the upper abdomen using 100 ml of Isovue 370 intravenous contrast material with coronal and sagittal re-formations. Findings: Advanced COPD and emphysematous changes are appreciated along with subpleural fibrosis and scarring. Postsurgical changes involving the left hemithorax are suggested along with chronic-appearing pleural thickening. The previously identified 2.1 cm mass in the periphery of the left lower lobe is no longer apparent and has been likely surgically removed. Surgical clips and a focal area of subpleural soft tissue nodularity is identified along the periphery of the left lung (images 30 - 58) which may be related to the previous mass and associated surgery. No further, new discrete nodule or mass lesion identified. No pneumothorax. Atherosclerotic changes to the thoracic aorta and coronary arteries noted without aneurysm or cardiomegaly. Prevascular lymph nodes and small anterior mediastinal lymph nodes measure up to 14 mm and similar to prior examination. No further acute adenopathy noted. Musculoskeletal structures demonstrate age-related degenerative change. Limited evaluation of the upper abdomen demonstrates left renal hypodensities likely representing cysts. Impression: 2. Advanced chronic COPD and emphysematous changes with suspected postsurgical changes involving left hemithorax as described above including focus of some pleural soft tissue nodularity. 1. Previously noted left lower lobe mass is likely surgically absent. No new acute mass lesion or adenopathy appreciated. Signed by Jose Cali MD 05/26/2017 12:58 P
== END ==
LOC: M RAD 10:41
PROVIDERS: ATTEND Internal Medicine Medical Oncology
DX: D3A.8 Other benign neuroendocrine tumors (principal); J44.9 Chronic obstructive pulmonary disease, unspecified; I25.10 Atherosclerotic heart disease of native coronary artery without angina pectoris; I70.0 Atherosclerosis of aorta
CPT/HCPCS: 71260; Q9967

== ENCOUNTER → 2017-06-08 | Outpatient (CLI) | payer MEDICARE, BC ==
[~2017-06-08] MED LIST changes: -ISOVUE-370 76% 100ML VIAL (Q9967) As Ordered ONE
--- NOTE | 2017-07-09 01:10 | ECWPNPC ---
PATIENT NAME: JOANN TALLEY : 1935 GENDER: MALE VISIT DATE: 06/08/2017 DISCHARGE DATE: 06/08/17 1132 VISIT LOCKED DATE TIME: PHYSICIAN: VAUGHN GREEN RESOURCE: VAUGHN GREEN HISTORY OF PRESENT ILLNESS HISTORY OF PRESENT ILLNESS: PAIN THE PATIENT DESCRIBES THE PAIN... FALL RISK SCREENING: SCREENING :NO FALLS IN THE PAST YEAR TODAY'S VISIT: NOTES: RATES PAIN LEVEL TODAY 4/10. DESCRIBES PAIN INTERMITTANT, ACHING, AND REMAINS CENTERED ACROSS THE LOW BACK. HAS BEEN HAVING GOD AND BAD DAYS. PAIN IS NOW MORE ON THE SIDES. NO PAIN RAD TO LEGSTTODAY REPORTS THE FACET BLOCK WAS NOT VERY SUCCESSFUL. IS CURRENTLY DOING PT FOR BACK AND LEG STREGTHENING. . CURRENT MEDICATIONS TAKING CARBIDOPA-LEVODOPA 25-100 MG TABLET 1 TABLET ORALLY DAILY TAKING OMEPRAZOLE 20 MG CAPSULE DELAYED RELEASE 1 CAPSULE ORALLY ONCE A DAY TAKING AMLODIPINE BESYLATE 10 MG TABLET 1 TABLET ORALLY ONCE A DAY TAKING [id number] 750-600 CAPSULE DIRECTED ORALLY BID TAKING TYLENOL 325 MG TABLET 1 TABLET NEEDED ORALLY EVERY 6 HRS TAKING MAGNESIUM 400 MG CAPSULE 1 CAPSULE WITH A MEAL ORALLY ONCE A DAY TAKING FERROUS SULFATE 325 (65 FE) MG TABLET 1 TABLET ORALLY ONCE A DAY TAKING METOPROLOL SUCCINATE ER 50 MG TABLET EXTENDED RELEASE 24 HOUR 1 TABLET ORALLY TWICE A DAY TAKING FOLIC ACID 1 MG TABLET 1 TABLET ORALLY ONCE A DAY TAKING COMBIVENT 18-103 MCG/ACT AEROSOL 2 PUFFS INHALATION FOUR TIMES A DAY NEEDED TAKING CALTRATE 600+D 600-400 MG-UNIT TABLET CHEWABLE 1 TABLET WITH MEALS ORALLY TWICE A DAY TAKING KEPPRA 500 MG TABLET 1 TABLET ORALLY DAILY TAKING SYSTANE 0.4-0.3 % SOLUTION 1 DROP INTO AFFECTED EYE NEEDED OPHTHALMIC 3 TIME(S) A DAY TAKING FISH OIL 1200 MG CAPSULE 1 CAPSULE ORALLY TWICE A DAY TAKING VITAMIN D 1000 UNIT CAPSULE 1 CAPSULE ORALLY ONCE A DAY TAKING BORIC ACID IN ISOPROPYL SOLUTION DIRECTED OTIC NEEDED TAKING ZYRTEC ALLERGY 10 MG TABLET 1 TABLET NEEDED ORALLY ONCE A DAY TAKING NASONEX 50 MCG/ACT SUSPENSION 2 SPRAYS IN EACH NOSTRIL NASALLY TWICE A DAY TAKING CENTRUM .04 TABLET 1 TAB ORALLY DAILY TAKING TAMSULOSIN HCL 0.4 MG CAPSULE 1 TAB ORALLY ONCE A DAY TAKING OXYBUTYNIN CHLORIDE ER 5 TABLET EXTENDED RELEASE 24 HOUR DIRECTED ORALLY ONCE A DAY TAKING FINASTERIDE 5 MG TABLET TAKE ONE TABLET BY MOUTH EVERY DAY TAKING LIPITOR 20 MG TABLET 1 TABLET ORALLY ONCE A DAY TAKING ADVAIR HFA 45-21 MCG/ACT AEROSOL 2 PUFFS INHALATION TWICE A DAY TAKING RANITIDINE HCL 150 MG CAPSULE 1 CAPSULE AT BEDTIME ORALLY TWICE A DAY TAKING OXYBUTYNIN CHLORIDE 10 MG TABLET EXTENDED RELEASE ORALLY DAILY NOT-TAKING LASIX 20 MG TABLET 1 TABLET ORALLY ONCE A DAY NOT-TAKING AMLODIPINE BESYLATE NOT-TAKING TAMSULOSIN HCL 0.4 MG CAPSULE 2 CAPSULE ORALLY ONCE A DAY NOT-TAKING OXYBUTYNIN CHLORIDE ER 5 MG TABLET EXTENDED RELEASE 24 HOUR TAKE ONE TABLET BY MOUTH EVERY DAY DIRECTED MEDICATION LIST REVIEWED AND RECONCILED WITH THE PATIENT PAST MEDICAL HISTORY HTN COPD (DR. JENSEN) KIDNEY STONES OSTEOARTHRITIS RLS SLEEP APNEA WITH CPAP HYPERLIPIDEMIA HX SUBDURAL HEMATOMA SECONDARY TO FALL INJURY LUNG CANCER LUPUS ALLERGIES SULFA (FOR ALLERGY USE ONLY): SWELLING: ALLERGY GARLIC: NAUSEA/VOMITING: SIDE EFFECTS AUGMENTIN: RASH: ALLERGY SOCIAL HISTORY GENERAL: TOBACCO USE ARE YOU A:NONSMOKER FORMER SMOKER QUIT OVER 20 YRS AGO RECREATIONAL DRUG USE DRUG USE? NO. CAFFEINE CAFFEINE USE?YES MARITAL STATUS: . MUSLIM NO SPIRITISM BELIEFS THAT WOULD IMPACT HEALTH CARE. LEARNING BARRIERS / SPECIAL NEEDS BARRIERS TO LEARNING?NO HEARING IMPAIRED? HEARING AID VISION IMPAIRED? GLASSES READINESS TO LEARN?YES LEARNING PREFERENCES?NO LEARNING CAPABILITIES PRESENT?YES PSYCHOLOGICAL HX TREATMENT NO . PAIN CLINIC PFS, CLERGY, PUBLIC HEALTH REFERRALS PFS REFERRAL NEEDED?NO CLERGY REFERRAL NEEDED?NO PUBLIC HEALTH REFERRAL NEEDED?NO HAS THE PATIENT BEEN EDUCATED REGARDING HIS/HER PLAN OF CARE?YES HAS THE PATIENT BEEN EDUCATED REGARDING PAIN, THE RISK FOR PAIN, THE IMPORTANCE OF EFFECTIVE PAIN MANAGEMENT, AND THE PAIN ASSESSMENT PROCESS?YES PATIENT: ____. ADVANCE DIRECTIVES HEALTH CARE PROXY? NO, POWER OF AEROSPACE ENGINEER OFFICER ARMAMENT? NO. TRAVEL OUTSIDE US: DENIES. REVIEW OF SYSTEMS REVIEWED BY: PROVIDER: VAUGHN MUSE . CONSTITUTIONAL: ANY CHANGE IN YOUR MEDICAL CONDITION? NO . CHILLS NO . FEVER NO . INFECTION: DO YOU HAVE NEW INFECTIONS? NO . DO YOU HAVE HISTORY OF MRSA? NO . MUSCULOSKELETAL: ANY NEW PATTERNS OF PAIN OR NUMBNESS? NO . GASTROENTEROLOGY: ANY NEW CHANGE IN BOWEL CONTROL? NO . GENITOURINARY: ANY NEW CHANGE IN BLADDER CONTROL? NO . IS THERE A CHANCE YOU COULD BE ? NO . HEMATOLOGY/LYMPH: DO YOU TAKE ANY BLOOD THINNERS? (FOR EXAMPLE- COUMADIN, PLAVIX, AGGRENOX, PLATEL, PRADAXA, OR XARELTO) NO . WHEN WAS YOUR LAST DOSE? DATE: TIME: . NEUROLOGY: HAVE YOU FALLEN IN THE PAST 6 MONTHS? NO . ANY NEW EXTREMITY NUMBNESS OR WEAKNESS? NO . CARDIOLOGY: DO YOU HAVE A PACEMAKER OR DEFIBRILLATOR? NO . RESPIRATORY: HAVE YOU BEEN SICK IN THE PAST WEEK? NO . FEVER NO . FLU LIKE SYMPTOMS? NO . COUGH NO . INTEGUMENTARY: DO YOU HAVE ANY RASHES OR OPEN SORES? NO . ALLERGIC/IMMUNO: ARE YOU ALLERGIC TO SHELLFISH OR IV DYE? NO . ANY NEW ALLERGIES? NO . PSYCHIATRIC: DO YOU HAVE THOUGHTS OF HURTING YOURSELF OR SOMEONE ELSE? NO . ARE YOU ABUSED, NEGLECTED, OR IN AN UNSAFE ENVIRONMENT? NO . ENDOCRINOLOGY: ARE YOU DIABETIC? NO . OTHER: DO YOU NEED ANY PRESCRIPTIONS? NO . IF YES, PLEASE LIST: ____ . ANY NEW PROBLEMS WITH YOUR MEDICATIONS? NO . WHEN DID YOU LAST EAT? ____ . WHEN DID YOU LAST DRINK? ____ . WHAT DID YOU LAST DRINK? ____ . NAME OF PERSON DRIVING YOU HOME? ____ . DO YOU HAVE ANY OTHER QUESTIONS OR CONCERNS NO . VITAL SIGNS WT 195 LBS, HT 5'8", BMI 29.65 INDEX, BP 135/71 MM HG, HR 66 /MIN, RR 18 /MIN, TEMP 98.0 F, OXYGEN SAT % 95%, NA INITIALS SC 10:54, REVIEWED BY: NIRMAL. EXAMINATION GENERAL EXAMINATION: PSYCHALERT , ORIENTED X 3 , APPROPRIATE MOOD AND AFFECT , ATTENTIVE. LUNGS:CLEAR TO AUSCULTATION BILATERALLY. HEART:HEART RATE REGULAR. MUSCULOSKELETAL:MINIMAL TENDERNESS WITH PALPATION OVER RIGHT FLANK AND BILATERAL LUMBAR PARAVERTEBRAL MUSCLES. MIN TENDERNESS OVER LUMBAR SPINOUS PROCESSES. , HT. , MUSCLE STRENGTH TESTING 5/5 BILATERAL UPPER EXTREMITIES. INCREASED MUSCLE TONE NOTED. GAIT STIFF. WALKER USED FOR BALANCE. SOME DIFFICULTY NOTED RISING TO FULL STANDING POSITION BUT IS ABLE TO DO THIS INDEPENDANTLY.. NEUROLOGIC EXAM:EXPRESSIVE APHASIA NOTED. MASKLIKE FACE. ASSESSMENTS SPONDYLOSIS WITHOUT MYELOPATHY OR RADICULOPATHY, LUMBAR REGION - M47.816 (PRIMARY) MYALGIA - M79.1 (PRIMARY) LUMBAGO WITH SCIATICA, RIGHT SIDE - M54.41 OTHER CHRONIC PAIN - G89.29 DEGENERATIVE LUMBAR SPINAL STENOSIS - M48.06 TREATMENT SPONDYLOSIS WITHOUT MYELOPATHY OR RADICULOPATHY, LUMBAR REGION NOTES: GO FOR MASSAGE THERAPYCOMPLETE PHYSICAL THERAPY. PROCEDURE CODES FA211 ESTABILISHED PATIENT [facility] CHARGE G8730 PAIN ASSESS POS TOOL F/U PLAN DOC G8427 DOC MEDS VERIFIED W/PT OR RE DISPOSITION & COMMUNICATION FOLLOW UP 6 MONTHS (REASON: BACK PAIN) ELECTRONICALLY SIGNED BY WEN BASS ON 07/05/2017 AT 07:17 PM EDT DISCLAIMER : THIS IS A VISIT SUMMARY EXTRACTED FROM THE [employer] CHART. IT IS NOT A COPY OF THE [employer] PROGRESS NOTE. [place]
== END ==
LOC: M PAIN 10:40
PROVIDERS: ATTEND Nurse Practitioner Family
DX: M47.816 Spondylosis without myelopathy or radiculopathy, lumbar region (principal); M79.1 Myalgia; M54.41 Lumbago with sciatica, right side; G89.29 Other chronic pain; M48.06 Spinal stenosis, lumbar region; Z79.899 Other long term (current) drug therapy; Z88.2 Allergy status to sulfonamides; Z88.1 Allergy status to other antibiotic agents; Z91.018 Allergy to other foods

== ENCOUNTER → 2017-08-16 | Outpatient (REF) | payer MEDICARE, BC, OTHER | LOC: M LAB REF 15:52 | PROVIDERS: ATTEND Nurse Practitioner Family | DX: L08.9 Local infection of the skin and subcutaneous tissue, unspecified (principal); N40.1 Benign prostatic hyperplasia with lower urinary tract symptoms; R35.1 Nocturia ==

== ENCOUNTER → 2017-08-16 | Outpatient (CLI) | payer MEDICARE, BC, OTHER ==
--- NOTE | 2017-08-16 10:22 | REP ---
CHEST, TWO VIEWS: HISTORY: COPD. COMPARISON: 12/22/2016. The right costophrenic angle is not seen. There is a loss of volume in the left hemithorax with elevation of the left hemidiaphragm. A diffuse increase in interstitial markings is present in the lungs consistent with chronic interstitial fibrosis. The cardiac silhouette is enlarged. The pulmonary vasculature is normal in appearance. The bony structure is osteopenic. There is an old compression fracture of a lower thoracic vertebral body with minimal height loss. IMPRESSION: 1. There is postoperative change in the left hemithorax. 2. COPD. Signed by Javier Oropeza MD 08/16/2017 10:35 A
== END ==
LOC: M SMT 09:44
PROVIDERS: ATTEND Internal Medicine Pulmonary Disease
DX: J44.9 Chronic obstructive pulmonary disease, unspecified (principal); Z98.890 Other specified postprocedural states
CPT/HCPCS: 71020; 87070; 87077; 87186; G0463

== ENCOUNTER 2017-10-07 16:52 | Inpatient (IN) | payer MEDICARE, BC, OTHER ==
[~2017-10-07] VITALS: Ht 172.7 cm; Wt 84.4 kg
[2017-10-07] VITALS (19 sets, daily range): BP systolic 120–146; BP diastolic 58–80
[2017-10-07] MEDS ORDERED: ONDANSETRON 4MG/2ML VIAL (J2405) IV PRN ×2 (17:15→23:30)
[2017-10-07] MEDS ORDERED: MORPHINE 2 MG/ML 1ML SYRINGE IV PRN (19:15)
[2017-10-07] MEDS ORDERED: OXYB5TAB PO (19:33)
[2017-10-07 19:35] LABS: MEAN CORPUSCULAR HEMOGLOBIN 30.7 pg (27.0-33.0); MEAN CORPUSCULAR HGB CONC 32.5 g/dl (32.0-36.5); MEAN CORPUSCULAR VOLUME 94.3 fl (80.0-96.0); PLATELET COUNT, AUTOMATED 158 10^3/uL (150-450); RED CELL DISTRIBUTION WIDTH 17.2 % (11.5-14.5); WHITE BLOOD COUNT 12.1 10^3/uL (4.0-10.0)
[2017-10-07] MEDS ORDERED: POTA1TAB14 PO (19:35)
[2017-10-07] MEDS ORDERED: DIVA500T3 PO (19:35)
[2017-10-07] MEDS ORDERED: OMEP20CA3 PO (19:38)
[2017-10-07] MEDS ORDERED: SYST1SOL OU (19:38)
[2017-10-07] MEDS ORDERED: TYLE325T5 PO (19:38)
[2017-10-07 19:39] LABS: LEFT SHIFT POS FLAG; POSITIVE MORPH POS FLAG
[2017-10-07] MEDS: LR 1,000 ML IV SCH (19:39)
[2017-10-07 19:40] LABS: ADD MANUAL DIFFER YES; DIFF SLIDE NUMBER 159
[2017-10-07 19:47] LABS: INR 1.12
[2017-10-07 19:52] LABS: BANDS 11 % (< 11)
[2017-10-07 19:53] LABS: TOXIC VACUOLATION 1+
[2017-10-07 19:59] LABS: ALBUMIN 2.5 GM/DL (3.2-5.2); ALBUMIN/GLOBULIN RATIO 0.78 (1.00-1.93); BILIRUBIN,TOTAL 2.9 MG/DL (0.2-1.0); CALCIUM LEVEL 8.6 MG/DL (8.8-10.2); CREATININE FOR GFR 1.24 MG/DL (0.70-1.30); GLOMERULAR FILTRATION RATE 59.4 (>35); MAGNESIUM LEVEL 1.6 MG/DL (1.8-2.4); POTASSIUM SERUM 3.8 MEQ/L (3.5-5.1); TOTAL PROTEIN 5.7 GM/DL (6.4-8.2)
[2017-10-07] MEDS ORDERED: MAG SULF 1GM/100ML (MAG RUN) 1 GM in APPROPRIATE DILUENT 1 EA IV ONE (20:00)
[2017-10-07] MEDS ORDERED: IPRATROPIUM 0.5MG/ALBUTEROL 2.5MG INH SOL UD 3ML (DUONEB)(J7620) INH PRN (20:00)
[2017-10-07] MEDS ORDERED: ISOVUE-300 61% 50ML VIAL (Q9967) As Ordered ONE (20:29)
--- NOTE | 2017-10-07 20:45 | HPE ---
DATE OF ADMISSION: 10/07/2017 PRIMARY CARE PROVIDER: Dr. Rice and also [facility]. ONCOLOGIST: Dr. Plaza. THORACIC SURGEON: Dr. James. FINANCIAL SALES ADVISOR: Dr. Vang. SITE LEAD: Dr. Martinez. NEUROLOGIST: Dr. Mcintosh. CHIEF COMPLAINT: Fevers, rigors, and altered mental status. HISTORY OF PRESENT ILLNESS: This is an 82-year-old male patient with underlying medical history of stage Ib small cell lung cancer, status post surgery, had one session of chemotherapy, surgery by Dr. James 09/28/2016, and also currently in remission, chronic obstructive pulmonary disease (COPD) not on oxygen, baseline ambulatory, dementia, hypertension, benign prostatic hypertrophy (BPH), obstructive sleep apnea, dyslipidemia, subdural hematoma secondary to fall four years ago with seizures, gastroesophageal reflux disease (GERD), restless leg, iron-deficiency anemia. The patient presented to [facility] with one week of progressively worsening slowness to respond to questions and a bit confused, but also on the morning of today, the patient had episodes of rigors and fever of 101.7, reported vague right upper quadrant abdominal pain. The patient is a poor historian. At the [facility], the patient was found to have transaminitis, elevated bilirubin. Initially had a blood pressure in the 70s. Later after hydration, the patient has been normotensive at 120s over 60s. Comfortable, nontoxic. Subsequently request was made from [facility] for the patient to be transferred to [facility]. Case discussed with Dr. Martinez, who is available on consult as well as nursing supervisor billposting, who has assured that OPP was able to get staff to come in to do endoscopic retrograde cholangiopancreatography (ERCP) if need to be. Furthermore, Dr. Steel has been contacted to ask interventional radiology to be on standby for tomorrow morning in the event that cholecystostomy tube is needed. Subsequently the patient arrived at [facility]. Denies any chest pain, pressure, discomfort. Reported vague sensation of right upper quadrant abdominal pain. Comfortable in no acute distress. Denies any nausea or vomiting, diarrhea, constipation. Warner catheter was placed at [facility], draining dark yellow urine. ALLERGIES: AMOXICILLIN, AUGMENTIN, GARLIC, SULFA DRUGS, AND SULFA CROSS-REACTORS. PAST MEDICAL HISTORY: 1. Obstructive sleep apnea. 2. Stage Ib small cell lung cancer. 3. COPD. 4. Hypertension. 5. BPH. 6. Dyslipidemia. 7. Abdominal aortic aneurysm. 8. Subdural hematoma four years ago with seizure. As per patient, subdural hematoma secondary to fall. Baseline ambulating with a walker. 9. GERD. 10. Restless leg. 11. Iron-deficiency anemia. PAST SURGICAL HISTORY: 1. Lobectomy 09/2016. 2. Abdominal aortic aneurysm repair. 3. Cataract surgery. 4. Bilateral hip repair. 5. Inguinal hernia. FAMILY HISTORY: Sister with breast cancer. SOCIAL HISTORY: The patient lives with his who is a retired nurse. Former smoker. Quit smoking 1998. No illicit drug use and does not drink alcoholic beverages. Baseline ambulating with a walker. HOME MEDICATIONS: - acetaminophen 325 mg by mouth every six hours as needed - Combivent inhalation four times a day as needed - Norvasc 5 mg by mouth daily - Lipitor 20 mg by mouth at bedtime - boric acid 4% every weekly as needed for dry skin - calcium/vitamin D by mouth twice a day - carbidopa-levodopa 225/100 mg one tablet by mouth at bedtime - Zyrtec 10 mg by mouth at bedtime - vitamin D 2000 units by mouth daily - Depakote 500 mg by mouth daily - ferrous sulfate 325 mg by mouth at bedtime - fish oil 1200 mg by mouth twice a day - folic acid - glucosamine 750 mg by mouth twice a day - magnesium oxide 400 mg by mouth at bedtime - metoprolol 50 mg by mouth twice a day - Nasonex nasal spray daily - multivitamin one tablet by mouth daily - omeprazole 20 mg by mouth daily - oxybutynin 5 mg by mouth daily - Systane eye drops three times a day - potassium chloride 20 mEq by mouth daily - Metamucil one pack by mouth daily - ranitidine one tablet by mouth daily 150 mg - Advair inhaler 115/25 mcg inhalation twice a day - Flomax 0.4 mg by mouth daily REVIEW OF SYSTEMS: Reported fevers, rigors, mild confusion. Poor historian, reported right upper quadrant pain to palpation. PHYSICAL EXAMINATION: VITAL SIGNS: Temperature 98.8, pulse 83, respirations 16, blood pressure 128/60, pulse oximetry 95% on room air. GENERAL: Patient alert, comfortable, in no acute distress. HEENT: Normocephalic, atraumatic. PULMONARY: Bilaterally clear to auscultation. CARDIAC: Regular S1, S2. ABDOMEN: Right upper quadrant mildly tender. No rebound, no guarding. Hypoactive bowel sounds. EXTREMITIES: No clubbing, cyanosis or edema. SKIN: Intact. Abdominal surgical scar noted that is old. ELECTROCARDIOGRAM (EKG): Sinus rhythm at 87, no ST segment changes. LABORATORY DATA: WBC 12.1, hemoglobin and hematocrit 14.1 over 43.4, platelets 158. Chemistry: Sodium 145, potassium 3.8, chloride 112, bicarbonate 25, BUN 18, creatinine 1.24, lactic acid two, magnesium 1.6, bilirubin 2.9. AST 246, ALT 210, alkaline phosphatase 524. C-reactive protein 5.24. Lipase negative. IMAGING: CT scan as per preliminary read shows possible gallbladder distention with questionable biliary or common bile duct dilatation. ASSESSMENT AND PLAN: This is an 82 male patient with underlying medical history of stage Ib small cell lung cancer, currently in remission, status post lobectomy by Dr. James, 09/2016, chronic obstructive pulmonary disease, obstructive sleep apnea, hypertension, chronic kidney disease, benign prostatic hypertrophy, dyslipidemia, subdural hematoma with seizure secondary to fall, gastroesophageal reflux disease, restless leg, iron-deficiency anemia. The patient admitted to the hospital with fevers, rigors, transaminitis suspicious for ascending cholangitis. 1. Abdominal pain, fevers, rigors, transaminitis, suspicious for ascending cholangitis. Dr. Martinez has been consulted. Admitted to intensive care unit (ICU), meropenem, intravenous (IV) fluids. Laboratory has been appreciated. He will be going for endoscopic retrograde cholangiopancreatography (ERCP) later tonight. Nothing by mouth for now. Case discussed with Dr. Rubén Steel, radiologist, to have radiology staff on standby for tomorrow morning in the event that ERCP fails for possible cholecystostomy tube placement. We will continue to monitor. Case also discussed with news production supervisor, Dr. Vang, for possible central line in the event that patient becomes hypotensive. Currently lactic acid has been negative. 2. Chronic kidney disease (CKD), currently at baseline. Monitor BUN and creatinine. 3. Stage Ib small cell lung cancer. As per family, the patient has been in remission. Follows with Dr. Plaza in the summer with negative images. 4. Chronic obstructive pulmonary disease (COPD). Continue home medication. Patient currently not having any wheeze. 5. Hypertension. Withholding most of blood pressure medication other than the beta blockers. Will monitor blood pressure. 6. Obstructive sleep apnea (LEONARDO). LEONARDO protocol. Encourage family to bring continuous positive airway pressure (CPAP). 7. Benign prostatic hypertrophy (BPH). Patient currently has a Warner placed at [place]. Continue home medications. 8. Dyslipidemia. Holding statin given transaminitis. 9. History of subdural hematoma secondary to fall that was four years ago. Fall precautions. Continue seizure prophylactic medication from home. 10. Gastroesophageal reflux disease (GERD). Continue proton pump inhibitor (PPI). 11. Restless leg. Continue home medication. Holding vitamins and iron supplementation given patient is critically ill with cholangitis. 12. Deep venous thrombosis (DVT) prophylaxis. Heparin subcutaneous. 13. Dementia. Supportive care. Continue home medication. DISPOSITION: Pending ERCP and clinical improvement.
[2017-10-07] MEDS ORDERED: LIDOCAINE 2% INJ 100 MG/5 ML SDV (FOR ANES.) As Ordered ONE (21:11)
[2017-10-07] MEDS ORDERED: PROPOFOL 200 MG/20 ML VIAL As Ordered ONE (21:11)
[2017-10-07] MEDS ORDERED: fentaNYL 100 MCG/2 ML INJECTION (J3010) As Ordered ONE (21:11)
[2017-10-07] MEDS ORDERED: ROCURONIUM BROMIDE 50 MG/5 ML VIAL/SYRINGE As Ordered ONE (21:11)
[2017-10-07] MEDS ORDERED: PHENYLephrine HCL 500 MCG/5 ML (100MCG/ML) SYRINGE (J2370) As Ordered ONE (22:02)
[2017-10-07] MEDS ORDERED: ePHEDrine SULFATE 25 MG/5 ML(5MG/ML) SYRINGE As Ordered ONE (22:02)
[2017-10-07] MEDS ORDERED: GLYCOPYRROLATE INJ 0.2 MG/ML 2 ML VIAL As Ordered ONE (22:15)
[2017-10-07] MEDS ORDERED: NEOSTIGMINE 10 MG/10 ML VIAL (J2710) As Ordered ONE (22:15)
--- NOTE | 2017-10-07 22:51 | CR ---
DATE OF CONSULTATION: 10/07/2017 REASON FOR CONSULTATION: This is an 82-year-old white male transferred down from [facility] for any history of epigastric right upper quadrant pain, sudden onset morning of the admission with fevers and shaking chills. The patient's temperature was up to 102.7. He was hypotensive when brought to the emergency room at [facility]. He was given intravenous (IV) fluids there. Laboratory studies and abdominal CT ordered. He is also given IV antibiotics. He has numerous medical problems including chronic obstructive pulmonary disease (COPD), previous history of subarachnoid hemorrhage and seizures, a previous operation for lung cancer by Dr. James and has done well. He has no apparent weight loss. No complaints of dysphagia. No other change in bowel habits. The patient over the past several days has been apparently vague and seemed somewhat confused. PAST MEDICAL HISTORY: Is as above. 1. COPD. 2. History of seizures. 3. Subarachnoid hemorrhage. 4. History of lung cancer with surgery several years ago. 5. High blood pressure. SOCIAL HISTORY: Cigarettes, alcohol, drugs negative. REVIEW OF SYSTEMS: 11-point review of systems is noncontributory to the above problem. PHYSICAL EXAMINATION: GENERAL: Well-developed, well-nourished white male in no obvious acute distress. Appears stated age. CHEST: Clear to auscultation. CARDIOVASCULAR EXAM: Showed a regular rhythm. No murmurs or gallops. Normal physiological split S1 to S2. ABDOMEN: Soft, positive right upper quadrant tenderness, some rebound, no hepatosplenomegaly. Bowel sounds positive. EXTREMITIES: No cyanosis, clubbing, edema. Drew's negative. LABORATORY STUDIES On admission shows a bilirubin of 2.7, alkaline phosphatase 500. Transaminases in the high 200s, up to 275 each. Albumin is 2.1. White count was 4000. Platelets normal. INR was also normal. Abdominal CT was difficult. There was IV contrast given. There seems to be some biliary dilatation, but it was difficult to ascertain where there is a common bile duct stone. ANALYSIS: Abnormal liver functions, shaking chills, fevers in a patient with right upper quadrant pain. We will need to set the patient up for an endoscopic retrograde cholangiopancreatography (ERCP) with possible papillotomy for probable choledocholithiasis causing secondary ascending cholangitis. Informed consent has been given to the family. IV antibiotic has also been given. PLAN: 1. ERCP with possible papillotomy of a liver sweep and possible stent placement. 2. Maintain IV antibiotics. 3. Check labs in the morning. 4. Consider further studies including ultrasound of gallbladder to rule out cholelithiasis.
[2017-10-07] MEDS ORDERED: LR 1,000 ML IV SCH (23:30)
[2017-10-07] MEDS ORDERED: fentaNYL 100 MCG/2 ML INJECTION (J3010) IV PRN (23:30)
[2017-10-07] MEDS ORDERED: NORCO, ANEXSIA 5/325MG TABLET (HYDROcodone/ACETAMINOPHEN) PO PRN (23:30)
[2017-10-07] MEDS: MEROPENEM INJ 1 GM in NS 100 ML IV SCH (23:43)
[2017-10-08] VITALS (15 sets, daily range): BP systolic 116–177; BP diastolic 57–77
[2017-10-08] MEDS: CETIRIZINE (ZyrTEC) 10 MG TAB PO SCH ×2 (00:25→21:08)
[2017-10-08] MEDS: POLYVINYL ALCOHOL OPHTH SOLN 15 ML(LIQUITEARS) OU SCH ×4 (00:25→21:08)
[2017-10-08] MEDS: SINEMET 25-100 MG TAB PO SCH ×2 (00:25→21:08)
[2017-10-08] MEDS: PANTOPRAZOLE 40MG INJ (PROTONIX) (C9113) IV SCH ×2 (00:26→21:08)
[2017-10-08] MEDS: METOPROLOL SUCC (TopROL XL) 50MG **XL** TAB PO SCH ×3 (00:26→21:10)
[2017-10-08] MEDS: HEPARIN SOD (PORCINE) 5000 UNITS/ML VIAL SC SCH ×4 (00:27→21:08)
[2017-10-08 01:32] LABS: MICROSCOPIC INDICATED? MAN YES (NO)
[2017-10-08 01:51] LABS: RBC, URINE TNTC /hpf (0-3)
[2017-10-08 01:52] LABS: BACTERIA, URINE NONE SEEN; SQUAMOUS EPITHELIAL CELL URINE SMALL AMOUNT /hpf (SMALL AMT); TRANSITIONAL EPI CELLS, URINE LARGE AMOUNT /hpf
[2017-10-08 01:53] LABS: HYALINE CAST, URINE 15-20 /lpf (0-1)
[2017-10-08 01:55] LABS: MICROSCOPIC EXAM PERFORMED
[2017-10-08] MEDS ORDERED: NS 500 ML IV ONE ×2 (02:15→05:45)
[2017-10-08] MEDS: ADVAIR HFA 115/21MCG INHALER INH SCH ×3 (03:04→20:46)
[2017-10-08 05:15] LABS: MEAN CORPUSCULAR HEMOGLOBIN 30.5 pg (27.0-33.0); MEAN CORPUSCULAR HGB CONC 32.5 g/dl (32.0-36.5); MEAN CORPUSCULAR VOLUME 93.9 fl (80.0-96.0); PLATELET COUNT, AUTOMATED 148 10^3/uL (150-450); RED CELL DISTRIBUTION WIDTH 17.4 % (11.5-14.5); WHITE BLOOD COUNT 13.5 10^3/uL (4.0-10.0)
[2017-10-08] MEDS: LR 1,000 ML IV SCH ×3 (05:24→15:00)
[2017-10-08 05:52] LABS: ALBUMIN 2.1 GM/DL (3.2-5.2); ALBUMIN/GLOBULIN RATIO 0.64 (1.00-1.93); ALKALINE PHOSPHATASE 412 U/L (45-117); ALT/SGPT 70 U/L (12-78); ANION GAP 7 MEQ/L (8-16); AST/SGOT 196 U/L (7-37); BILIRUBIN,TOTAL 2.6 MG/DL (0.2-1.0); BLOOD UREA NITROGEN 21 MG/DL (7-18); CALCIUM LEVEL 7.9 MG/DL (8.8-10.2); CARBON DIOXIDE LEVEL 25 MEQ/L (21-32); CHLORIDE LEVEL 113 MEQ/L (98-107); CREATININE FOR GFR 1.17 MG/DL (0.70-1.30); GLOMERULAR FILTRATION RATE > 60.0 (>35); GLUCOSE, FASTING 115 MG/DL (83-110); MAGNESIUM LEVEL 1.8 MG/DL (1.8-2.4); POTASSIUM SERUM 4.3 MEQ/L (3.5-5.1); SODIUM LEVEL 145 MEQ/L (136-145); TOTAL PROTEIN 5.4 GM/DL (6.4-8.2)
[2017-10-08] MEDS: MEROPENEM INJ 1 GM in NS 100 ML IV SCH (08:03)
[2017-10-08] MEDS: FLUTICASONE PROP 0.05% NASAL SPRAY 16 GM (FLONASE) SCH (08:03)
[2017-10-08] MEDS: FOLIC ACID 1 MG TAB PO SCH (08:04)
[2017-10-08] MEDS: TAMSULOSIN 0.4 MG CAP PO SCH (08:04)
[2017-10-08] MEDS: METAMUCIL (PSYLLIUM) PACKET PO SCH (08:04)
[2017-10-08] MEDS: DIVALPROEX 500 MG TAB PO SCH (09:00)
[2017-10-08] MEDS: oxyBUTYnin *DITROPAN XL* 5 MG TABCR PO SCH (09:00)
--- NOTE | 2017-10-08 09:27 | ROOR ---
Patient Name: Ron Watson Procedure Date: 10/07/2017 9:41 PM Date of : 1935 Age: 82 Room: Main OR Gender: Male Note Status: Finalized Procedure: ERCP + Papillotomy + Balloon Sweep + Stent + Biopsies Indications: Abdominal pain of suspected biliary origin, Suspected ascending cholangitis, Elevated liver enzymes Providers: Bassem Martinez MD Referring MD: 2. Inpatient 2. Inpatient Requesting Provider: Medicines: General Anesthesia Complications: No immediate complications. Procedure: Pre-Anesthesia Assessment: - The heart rate, respiratory rate, oxygen saturations, blood pressure, adequacy of pulmonary ventilation, and response to care were monitored throughout the procedure. The Duodenoscope was introduced through the mouth, and advanced to the duodenum and used to inject contrast into the bile duct. The ERCP was accomplished without difficulty. The patient tolerated the procedure well. Findings: The scope was passed through the upper GI tract without discovering UGI findings. The major papilla was bulging. A small frondlike/villous mass was found at the major papilla. A short 0.035 inch Soft Jagwire was passed into the biliary tree. The short-nosed traction sphincterotome was passed over the guidewire and the bile duct was then deeply cannulated. Contrast was injected. I personally interpreted the bile duct images. Ductal flow of contrast was adequate. Image quality was adequate. Contrast extended to the entire biliary tree. Biliary sphincterotomy was made with a monofilament traction (standard) sphincterotome using ERBE electrocautery. There was no post-sphincterotomy bleeding. The biliary tree was swept with a 12 mm balloon starting at the bifurcation. Sludge was swept from the duct. One 10 Fr by 6 cm partially covered metal stent was placed into the common bile duct. Bile flowed through the stent. The stent was in good position. This was biopsied with a cold forceps for histology. Impression: - The major papilla appeared to be bulging. - The major papilla appeared to have a mass. The ampulla was biopsied. - A biliary sphincterotomy was performed. - The biliary tree was swept and sludge was found. - One partially covered metal stent was placed into the common bile duct. - The examination was otherwise normal. Recommendation: - Avoid aspirin and nonsteroidal anti-inflammatory medicines. - [facility]. - Watch for pancreatitis, bleeding, perforation, and cholangitis. - The findings and recommendations were discussed with the patient's family. Bassem Martinez MD Bassem Martinez MD 10/08/2017 9:26:32 AM This report has been signed electronically. Number of Addenda: 0 Note Initiated On: 10/07/2017 9:41 PM Estimated Blood Loss: Estimated blood loss: none.
--- NOTE | 2017-10-08 11:07 | IPNPDOC ---
Text Note Date of Service The patient was seen on 10/08/17. NOTE Subjective: Pt states abd pain has resolved. No CP/SOB/Palpitations. Objective: Vitals: (see below) General: No acute distress, laying comfortably in bed. HEENT: Moist mucous membranes. Neck: No JVD or lymphadenopathy Cardiac: RRR, No murmurs Pulm: CTA B/l. No wheezing, rhonchi Abd: NT/ND + BS Ext: No edema or cyanosis Labs (see below) Images: Assessment/Plan 1. Ascending Cholangitis - Presented with Abd pain - seen in [facility], transfered to [facility] for GI consultation. Had ERCP last night with debris, s/p papillotomy, removal of debris, ampulla biopsy. LFTs improving. Fevers improving. Cont IV Abx. Appreciate GI input. 2. COPD continue Advair 3. Stage IB small cell lung cancer status post lobectomy by Dr. James. S/p chemo in remission. 4. BPH- continue home meds 5. GERD- continue PPI 6. Iron deficiency anemia- continue ferrous sulfate 7. Restless leg syndrome - continue home meds 8. History of CVA- cont home meds Prognosis guarded. VS,Fishbone, I+O VS, Fishbone, I+O Laboratory Tests 10/07/17 19:25 Red Blood Count 4.60, Mean Corpuscular Volume 94.3, Mean Corpuscular Hemoglobin 30.7, Mean Corpuscular Hemoglobin Concent 32.5, Red Cell Distribution Width 17.2 H, Calcium Level 8.6 L, Aspartate Amino Transf (AST/SGOT) 246 H, Alanine Aminotransferase (ALT/SGPT) 210 H, Alkaline Phosphatase 524 H, Total Bilirubin 2.9 H, Total Protein 5.7 L, Albumin 2.5 L 10/08/17 04:42 Red Blood Count 4.13 L, Mean Corpuscular Volume 93.9, Mean Corpuscular Hemoglobin 30.5, Mean Corpuscular Hemoglobin Concent 32.5, Red Cell Distribution Width 17.4 H, Calcium Level 7.9 L, Aspartate Amino Transf (AST/SGOT ) 196 H, Alanine Aminotransferase (ALT/SGPT) 70, Alkaline Phosphatase 412 H, Total Bilirubin 2.6 H, Total Protein 5.4 L, Albumin 2.1 L Vital Signs Date Time Temp Pulse Resp B/P (MAP) Pulse Ox O2 Delivery O2 Flow Rate FiO2 10/08/17 10:00 76 15 152/67 (95) 96 Room Air 10/08/17 08:00 98.0 10/07/17 23:15 2 I&O- Last 24 Hours up to 6 AM 10/09/17 06:00 Intake Total 1125 ml Output Total 80 ml Balance 1045 ml ANNETTE ORO MD Oct 08, 2017 11:07
[2017-10-08] MEDS ORDERED: IPRATROPIUM 0.5MG/ALBUTEROL 2.5MG INH SOL UD 3ML (DUONEB)(J7620) NEB PRN (17:45)
[2017-10-08] MEDS ORDERED: FUROSEMIDE 40 MG/4 ML VIAL (J1940) IV ONE (17:45)
[2017-10-08] MEDS: MEROPENEM INJ 1 GM in APPROPRIATE DILUENT 1 EA IV SCH (20:05)
[2017-10-09] VITALS (10 sets, daily range): BP systolic 123–185; BP diastolic 60–92
[2017-10-09 05:13] LABS: MEAN CORPUSCULAR HEMOGLOBIN 30.5 pg (27.0-33.0); MEAN CORPUSCULAR HGB CONC 32.8 g/dl (32.0-36.5); PLATELET COUNT, AUTOMATED 154 10^3/uL (150-450); RED CELL DISTRIBUTION WIDTH 17.4 % (11.5-14.5); WHITE BLOOD COUNT 7.9 10^3/uL (4.0-10.0)
[2017-10-09 05:40] LABS: ALBUMIN 2.1 GM/DL (3.2-5.2); ALBUMIN/GLOBULIN RATIO 0.62 (1.00-1.93); BILIRUBIN,TOTAL 1.7 MG/DL (0.2-1.0); CALCIUM LEVEL 7.9 MG/DL (8.8-10.2); CREATININE FOR GFR 1.26 MG/DL (0.70-1.30); GLOMERULAR FILTRATION RATE 58.3 (>35); MAGNESIUM LEVEL 1.8 MG/DL (1.8-2.4); POTASSIUM SERUM 3.2 MEQ/L (3.5-5.1); TOTAL PROTEIN 5.5 GM/DL (6.4-8.2)
--- NOTE | 2017-10-09 05:49 | REP ---
C-ARM VIEWS DURING ERCP: Multiple C-arm views are obtained during ERCP exam. Common bile duct is cannulated. Contrast is injected into the biliary system. Balloon catheter manipulation is performed. There appears to be a stent placed in the common bile duct. 2.6 minutes fluoroscopy time utilized. Signed by Rubén Steel MD 10/09/2017 09:02 A
[2017-10-09] MEDS: HEPARIN SOD (PORCINE) 5000 UNITS/ML VIAL SC SCH ×3 (05:54→21:39)
[2017-10-09] MEDS ORDERED: POTASSIUM CHLORIDE 10 MEQ SR TABLET PO ONE ×2 (08:00→12:00)
[2017-10-09] MEDS: MEROPENEM INJ 1 GM in APPROPRIATE DILUENT 1 EA IV SCH ×2 (08:23→20:14)
[2017-10-09] MEDS: POLYVINYL ALCOHOL OPHTH SOLN 15 ML(LIQUITEARS) OU SCH ×3 (08:25→20:15)
[2017-10-09] MEDS: TAMSULOSIN 0.4 MG CAP PO SCH (08:26)
[2017-10-09] MEDS: FOLIC ACID 1 MG TAB PO SCH (08:26)
[2017-10-09] MEDS: oxyBUTYnin *DITROPAN XL* 5 MG TABCR PO SCH (08:27)
[2017-10-09] MEDS: METOPROLOL SUCC (TopROL XL) 50MG **XL** TAB PO SCH ×2 (08:27→20:17)
[2017-10-09] MEDS: FLUTICASONE PROP 0.05% NASAL SPRAY 16 GM (FLONASE) SCH (08:27)
[2017-10-09] MEDS: ADVAIR HFA 115/21MCG INHALER INH SCH ×2 (08:31→21:00)
[2017-10-09] MEDS: amLODIPine 5 MG TAB PO SCH (08:49)
[2017-10-09] MEDS ORDERED: MAG SULF 1GM/100ML (MAG RUN) 1 GM in APPROPRIATE DILUENT 1 EA IV ONE (09:00)
[2017-10-09] MEDS: METAMUCIL (PSYLLIUM) PACKET PO SCH (12:16)
[2017-10-09] MEDS: DIVALPROEX 500 MG TAB PO SCH (12:17)
[2017-10-09] MEDS ORDERED: ACETAMINOPHEN TAB 650MG DOSE (2X325MG) PO PRN (13:30)
--- NOTE | 2017-10-09 14:04 | IPNPDOC ---
Text Note Date of Service The patient was seen on 10/09/17. NOTE Subjective: Abd pain has resolved. No CP/SOB/Palpitations. Objective: Vitals: (see below) General: No acute distress, laying comfortably in bed. HEENT: Moist mucous membranes. Neck: No JVD or lymphadenopathy Cardiac: RRR, No murmurs Pulm: CTA B/l. No wheezing, rhonchi Abd: NT/ND + BS Ext: No edema or cyanosis Labs (see below) Images: Assessment/Plan 1. Ascending Cholangitis - Presented with Abd pain - seen in [facility], transferred to [facility] for GI consultation. Had ERCP last night with debris, s/p papillotomy, removal of debris, ampulla biopsy. LFTs improving. Fevers improving. Cont IV Abx. Appreciate GI input. Received call from nurse- [facility] has preliminary bld cx with gram - bacilli. Will need to f/u on final bld cx. 2. COPD continue Advair 3. Stage IB small cell lung cancer status post lobectomy by Dr. James. S/p chemo in remission. 4. BPH- continue home meds 5. GERD- continue PPI 6. Iron deficiency anemia- continue ferrous sulfate 7. Restless leg syndrome - continue home meds 8. History of CVA- cont home meds Prognosis guarded. D/c johnson. VS,Fishbone, I+O VS, Fishbone, I+O Laboratory Tests 10/09/17 04:50 Red Blood Count 4.13 L, Mean Corpuscular Volume 93.0, Mean Corpuscular Hemoglobin 30.5, Mean Corpuscular Hemoglobin Concent 32.8, Red Cell Distribution Width 17.4 H, Calcium Level 7.9 L, Aspartate Amino Transf (AST/SGOT ) 118 H, Alanine Aminotransferase (ALT/SGPT) 32, Alkaline Phosphatase 355 H, Total Bilirubin 1.7 H, Total Protein 5.5 L, Albumin 2.1 L Vital Signs Date Time Temp Pulse Resp B/P (MAP) Pulse Ox O2 Delivery O2 Flow Rate FiO2 10/09/17 12:00 97.2 73 17 149/71 (97) 96 Room Air 10/07/17 23:15 2 I&O- Last 24 Hours up to 6 AM 10/10/17 06:00 Intake Total 0 ml Output Total 0 ml Balance 0 ml ANNETTE ORO MD Oct 09, 2017 14:03
[2017-10-09] MEDS: CETIRIZINE (ZyrTEC) 10 MG TAB PO SCH (20:14)
[2017-10-09] MEDS: SINEMET 25-100 MG TAB PO SCH (20:14)
[2017-10-09] MEDS: PANTOPRAZOLE 40MG INJ (PROTONIX) (C9113) IV SCH (20:15)
[2017-10-10 04:45] VITALS: BP 138/72
[2017-10-10 06:10] LABS: ALBUMIN 2.1 GM/DL (3.2-5.2); ALKALINE PHOSPHATASE 407 U/L (45-117); ALT/SGPT 35 U/L (12-78); ANION GAP 5 MEQ/L (8-16); AST/SGOT 89 U/L (7-37); BILIRUBIN,TOTAL 1.7 MG/DL (0.2-1.0); BLOOD UREA NITROGEN 16 MG/DL (7-18); CALCIUM LEVEL 8.3 MG/DL (8.8-10.2); CARBON DIOXIDE LEVEL 26 MEQ/L (21-32); CHLORIDE LEVEL 110 MEQ/L (98-107); CREATININE FOR GFR 1.02 MG/DL (0.70-1.30); GLOMERULAR FILTRATION RATE > 60.0 (>35); GLUCOSE, FASTING 96 MG/DL (83-110); MAGNESIUM LEVEL 1.9 MG/DL (1.8-2.4); POTASSIUM SERUM 4.2 MEQ/L (3.5-5.1); SODIUM LEVEL 141 MEQ/L (136-145); TOTAL PROTEIN 5.6 GM/DL (6.4-8.2)
[2017-10-10 06:11] LABS: MEAN CORPUSCULAR HGB CONC 32.6 g/dl (32.0-36.5); PLATELET COUNT, AUTOMATED 163 10^3/uL (150-450); RED CELL DISTRIBUTION WIDTH 17.8 % (11.5-14.5); WHITE BLOOD COUNT 6.1 10^3/uL (4.0-10.0)
[2017-10-10] MEDS: HEPARIN SOD (PORCINE) 5000 UNITS/ML VIAL SC SCH ×3 (06:40→20:44)
[2017-10-10 08:00] VITALS: BP 142/70
[2017-10-10] MEDS: MEROPENEM INJ 1 GM in APPROPRIATE DILUENT 1 EA IV SCH ×2 (08:48→20:43)
[2017-10-10] MEDS: METOPROLOL SUCC (TopROL XL) 50MG **XL** TAB PO SCH ×2 (08:49→20:44)
[2017-10-10] MEDS: amLODIPine 5 MG TAB PO SCH (08:50)
[2017-10-10] MEDS: DIVALPROEX 500 MG TAB PO SCH (08:50)
[2017-10-10] MEDS: FOLIC ACID 1 MG TAB PO SCH (08:51)
[2017-10-10] MEDS: METAMUCIL (PSYLLIUM) PACKET PO SCH (08:51)
[2017-10-10] MEDS: TAMSULOSIN 0.4 MG CAP PO SCH (08:51)
[2017-10-10] MEDS: oxyBUTYnin *DITROPAN XL* 5 MG TABCR PO SCH (08:52)
[2017-10-10] MEDS: POLYVINYL ALCOHOL OPHTH SOLN 15 ML(LIQUITEARS) OU SCH ×3 (08:54→20:45)
[2017-10-10] MEDS: FLUTICASONE PROP 0.05% NASAL SPRAY 16 GM (FLONASE) SCH (08:54)
--- NOTE | 2017-10-10 09:58 | IPN ---
DATE: 10/10/2017 Mr. Watson was feeling well this morning. He has no complaints of pain, chest pain, shortness of breath. He has been tolerating a diet. He had a clear liquids for breakfast. No abdominal pain. Temperature is 98.4, pulse 73, respiratory rate 20, blood pressure 142/79, 96% on room air. Intakes and outputs notable for a negative fluid balance of -857. Three bowel movements noted yesterday. He is awake, appropriately interactive, pleasantly conversant. Head is normocephalic. Mucous membranes moist. Neck supple. Breathing is symmetrical and rested. Heart is distant sounding. Normal S1, S2. No evidence of arrhythmia on the monitor. Abdomen soft, doughy, nontender. Active bowel sounds. White cell count 6.1, hemoglobin 12.3, platelets 163. BUN 16, creatinine 1.02. Magnesium 1.9. Total bilirubin 1.7, same as yesterday. AST is 89, down from yesterday. Alkaline phosphatase is 407, slightly increased from yesterday. Albumin is 2.1. My assessment is as follows: 1. This is a 82-year-old with ascending cholangitis has been improving status post endoscopic retrograde cholangiopancreatography (ERCP). There was an ampullary biopsy done, results of which are not yet available. They will need to be followed. He had blood cultures for gram-negative bacilli done at [place], results of which are pending for speciation. Continues on appropriate antibiotics. 2. The patient has chronic obstructive pulmonary disease (COPD), which is compensated. Continue the Advair. 3. The patient has stage IB small lung cancer, status post lobectomy, status post chemo, in remission. 4. The patient has BPH. 5. The patient has gastroesophageal reflux disease (GERD). 6. The patient has iron deficiency anemia. 7. The patient has restless legs. 8. The patient has history of CVA. Plan will be to advance diet today and work with physical therapy.
[2017-10-10 12:00] VITALS: BP 143/73
[2017-10-10] MEDS: ADVAIR HFA 115/21MCG INHALER INH SCH ×2 (13:03→21:00)
[2017-10-10 16:00] VITALS: BP 157/73
[2017-10-10 20:00] VITALS: BP 132/65
[2017-10-10] MEDS: PANTOPRAZOLE 40MG INJ (PROTONIX) (C9113) IV SCH (20:44)
[2017-10-10] MEDS: CETIRIZINE (ZyrTEC) 10 MG TAB PO SCH (20:44)
[2017-10-10] MEDS: SINEMET 25-100 MG TAB PO SCH (20:44)
[2017-10-11] VITALS: BP 166/81
[2017-10-11 04:00] VITALS: BP 180/80
[2017-10-11 05:55] LABS: MEAN CORPUSCULAR HEMOGLOBIN 30.8 pg (27.0-33.0); MEAN CORPUSCULAR HGB CONC 32.8 g/dl (32.0-36.5); PLATELET COUNT, AUTOMATED 184 10^3/uL (150-450); RED CELL DISTRIBUTION WIDTH 17.4 % (11.5-14.5); WHITE BLOOD COUNT 6.2 10^3/uL (4.0-10.0)
[2017-10-11 06:00] VITALS: BP 180/80
[2017-10-11 06:01] LABS: ALKALINE PHOSPHATASE 418 U/L (45-117); ALT/SGPT 26 U/L (12-78); ANION GAP 7 MEQ/L (8-16); AST/SGOT 53 U/L (7-37); BLOOD UREA NITROGEN 18 MG/DL (7-18); CALCIUM LEVEL 8.3 MG/DL (8.8-10.2); CARBON DIOXIDE LEVEL 25 MEQ/L (21-32); CHLORIDE LEVEL 109 MEQ/L (98-107); CREATININE FOR GFR 0.98 MG/DL (0.70-1.30); GLOMERULAR FILTRATION RATE > 60.0 (>35); GLUCOSE, FASTING 102 MG/DL (83-110); POTASSIUM SERUM 3.9 MEQ/L (3.5-5.1); SODIUM LEVEL 141 MEQ/L (136-145)
[2017-10-11 06:02] LABS: ALBUMIN 2.1 GM/DL (3.2-5.2); MAGNESIUM LEVEL 1.8 MG/DL (1.8-2.4); TOTAL PROTEIN 5.6 GM/DL (6.4-8.2)
[2017-10-11 06:15] VITALS: BP 180/80
[2017-10-11] MEDS ORDERED: **hydrALAZINE** 10 MG TAB PO ONE (06:30)
[2017-10-11] MEDS: HEPARIN SOD (PORCINE) 5000 UNITS/ML VIAL SC SCH (06:46)
[2017-10-11 08:00] VITALS: BP 140/63
[2017-10-11] MEDS: ADVAIR HFA 115/21MCG INHALER INH SCH (08:04)
[2017-10-11] MEDS: MEROPENEM INJ 1 GM in APPROPRIATE DILUENT 1 EA IV SCH (08:23)
[2017-10-11] MEDS: METAMUCIL (PSYLLIUM) PACKET PO SCH (08:23)
[2017-10-11] MEDS: DIVALPROEX 500 MG TAB PO SCH (08:24)
[2017-10-11] MEDS: TAMSULOSIN 0.4 MG CAP PO SCH (08:24)
[2017-10-11] MEDS: oxyBUTYnin *DITROPAN XL* 5 MG TABCR PO SCH (08:24)
[2017-10-11] MEDS: amLODIPine 5 MG TAB PO SCH (08:24)
[2017-10-11 08:25] VITALS: BP 180/80
[2017-10-11] MEDS: FOLIC ACID 1 MG TAB PO SCH (08:25)
[2017-10-11] MEDS: POLYVINYL ALCOHOL OPHTH SOLN 15 ML(LIQUITEARS) OU SCH (08:25)
[2017-10-11] MEDS: METOPROLOL SUCC (TopROL XL) 50MG **XL** TAB PO SCH (08:25)
[2017-10-11] MEDS: FLUTICASONE PROP 0.05% NASAL SPRAY 16 GM (FLONASE) SCH (08:25)
[2017-10-11] MEDS ORDERED: CIPR-249 PO (08:27)
--- NOTE | 2017-10-11 21:06 | DSES ---
DATE OF ADMISSION: 10/07/2017 DATE OF DISCHARGE: 10/11/2017 SPECIALISTS INVOLVED IN CARE: Include Dr. Martinez. PROCEDURES INVOLVED DURING STAY: Include endoscopic retrograde cholangiopancreatography (ERCP) with stent placement. DISCHARGE DIAGNOSES: 1. Ascending cholangitis. 2. Enterococcus coli bacteremia as a result of ascending cholangitis. 3. Chronic obstructive pulmonary disease. 4. History of stage IB small-cell lung cancer, status post lobectomy, in remission. 5. Benign prostatic hypertrophy. 6. Gastroesophageal reflux disease. 7. Iron deficiency anemia. 8. Restless legs. 9. History of cerebrovascular accident. 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 SUMMARY OF PRESENTATION: This is an 82-year-old who presented with fever, rigors, and altered mental status. He was found to have cholangitis when he presented to [facility]. He was treated to [facility]. Dr. Martinez took the patient for ERCP. A stent was placed. Blood cultures eventually came back for Escherichia (E) coli from the [facility]. He improved quite quickly. Was seen by physical therapy. Diet was advanced. Today is deemed appropriate for discharge if clinically indicated. On day of discharge he was feeling well. He was ambulating without difficulty. No complaints of pain, chest pain, shortness of breath. Temperature is 98.9, pulse 69, respirations 18, blood pressure is 180/80 before his morning medication, 97% on bilevel positive airway pressure (BiPAP). He is awake, appropriately interactive, pleasantly conversant. Breathing is symmetrical, rested. Heart is in a regular rate and rhythm. Abdomen soft, doughy, and nontender. White cell count 6.2, hemoglobin 12.3, platelets are 184. BUN is 18, creatinine 0.98, alkaline phosphatase is 418. Total bilirubin is 1, AST is 53, down from 89, ALT is 26, which is normal. DISCHARGE INSTRUCTIONS: Including the following. Followup with Dr. Martinez within 2 weeks, [facility] within 1 week. He is referred for followup with Dr. Camarillo within 2 weeks. Activity as tolerated. Diet as tolerated. DISCHARGE MEDICATIONS: - Cipro 500 mg by mouth twice daily, #14 - Continue Tylenol. - Continue DuoNeb. - Continue Norvasc 5 mg by mouth daily. - atorvastatin 20 mg by mouth daily at bedtime - boric acid each year as needed for dry skin - calcium with vitamin D supplement - Sinemet one tablet by mouth daily at bedtime - cetirizine 10 mg by mouth daily at bedtime - vitamin D 2000 units by mouth daily - Depakote 500 mg by mouth daily - ferrous sulfate 325 mg by mouth daily at bedtime - fish oil 1200 mg by mouth twice daily - folic acid 1 mg by mouth daily - glucosamine 350 mg by mouth twice daily - magnesium oxide 400 mg by mouth daily at bedtime - metoprolol succinate 50 mg by mouth twice daily - mometasone Nasonex nasal spray two sprays nasally daily - multivitamin tablet daily - omeprazole 20 mg by mouth daily - oxybutynin 5 mg by mouth daily - polyethylene glycol eye drops each eye three times a day - potassium chloride 20 mg by mouth daily - psyllium packet daily - Zantac one tablet by mouth at bedtime - fluticasone two puffs inhaled twice daily - Flomax 0.4 mg by mouth daily Recommend following up with Dr. Martinez to discuss common bile duct stent removal, replacement, retention plan and to discuss followup with villous adenoma at the ampulla of Vater. Referral to Dr. Camarillo discussed for potential removal of gallbladder.
== END 2017-10-11 11:00 | disposition home or self-care (01) | DRG 445 ==
LOC: M ICU 18:39 → M PCU 10-09 06:50
PROVIDERS: ADMIT Hospitalist; ATTEND Hospitalist
PROC: 0FBC8ZX Excision of Ampulla of Vater, Via Natural or Artificial Opening Endoscopic, Diagnostic (ICD-10-PCS; 2017-10-07)
PROC: 0FC98ZZ Extirpation of Matter from Common Bile Duct, Via Natural or Artificial Opening Endoscopic (ICD-10-PCS; 2017-10-07)
PROC: 0F798DZ Dilation of Common Bile Duct with Intraluminal Device, Via Natural or Artificial Opening Endoscopic (ICD-10-PCS; principal; 2017-10-07 20:13)
DX: K83.0 Cholangitis (principal); R78.81 Bacteremia; J44.9 Chronic obstructive pulmonary disease, unspecified; F03.90 Unspecified dementia, unspecified severity, without behavioral disturbance, psychotic disturbance, mood disturbance, and anxiety; N40.0 Benign prostatic hyperplasia without lower urinary tract symptoms; I12.9 Hypertensive chronic kidney disease with stage 1 through stage 4 chronic kidney disease, or unspecified chronic kidney disease; D50.9 Iron deficiency anemia, unspecified; E78.5 Hyperlipidemia, unspecified; K21.9 Gastro-esophageal reflux disease without esophagitis; G25.81 Restless legs syndrome; Z88.1 Allergy status to other antibiotic agents; Z88.2 Allergy status to sulfonamides; Z91.018 Allergy to other foods; Z98.49 Cataract extraction status, unspecified eye; Z87.891 Personal history of nicotine dependence; Z79.899 Other long term (current) drug therapy; Z92.21 Personal history of antineoplastic chemotherapy; N18.2 Chronic kidney disease, stage 2 (mild)

== ENCOUNTER → 2017-11-30 | Outpatient (CLI) | payer MEDICARE, BC, OTHER ==
[~2017-11-30] MED LIST changes: -ACET500C PO; -ACTO150T PO; -ADV250INH INH; -ADVA115A INH; -AMLO2.5T PO; -AMLO5TAB2 PO; -ASPI1TAB PO; -ASPI81TA85 PO; -ASTE0.15; -BORIC ACID AU; -CALC1TAB30 PO; -CALTTAB10 PO; -CARB1TAB6 PO; -CARB25TA PO; -CEPH500C PO; -CETI10TA PO; -COMBAER6 IN; -COMBAER6 INH; -COMBIN INH; -FERR1TAB8 PO; -FERR325T3 PO; -FINA5TAB2 PO; -FISH120012 PO; -FLOM5CAP PO; -FOLI1TAB4 PO; -FOLI1TAB86 PO; -FURO20TA2 PO; +GASTROGRAFIN SOLUTION 30ML (Q9963) As Ordered; -GLUC750T22 PO; -GLUCTAB6 PO; +ISOVUE-370 76% 100ML VIAL (Q9967) As Ordered; -KEPP1TAB PO; -LEVA1TAB2 PO; -LIPI20TA PO; -LORA10TA2 PO; -MAGN400C2 PO; -MAGN400T2 PO; -META48.54 PO; -METAPKT PO; -METO1TAB7 PO; -METO50TA4 PO; -METO50TA7 PO; -MOME50SP; -NORT25CA2 PO; -NYST50SS SS; -OMEP20CA3 PO; -OXYB10TA PO; -PROC10TA PO; -RANI150T PO; -SINE25TA PO; -SYSTSOL8 OU; -TAMS0.4C2 PO; -TYLE325T5 PO; -VITA100037 PO; -VITA100066 PO; -VITMTA PO; -[UNRECOGNIZED DRUG - CODE] AU; -[UNRECOGNIZED DRUG - OTHER] PO; -benifiber PO; -metamucil PO
== END ==
LOC: M RAD 14:38
DX: C34.32 Malignant neoplasm of lower lobe, left bronchus or lung (principal); J84.10 Pulmonary fibrosis, unspecified; K57.30 Diverticulosis of large intestine without perforation or abscess without bleeding; Z96.643 Presence of artificial hip joint, bilateral; C78.7 Secondary malignant neoplasm of liver and intrahepatic bile duct; N28.1 Cyst of kidney, acquired
CPT/HCPCS: Q9963